=== PATIENT | male | born 1965 | race Hispanic/Latino ===

== ENCOUNTER 2018-08-24 20:08 | Inpatient (IN) | payer MEDICARE, OTHER ==
[2018-08-24 20:15] VITALS: O2SAT 97
--- NOTE | 2018-08-24 21:51 | ED PDOC ---
Arrival/HPI - General Chief Complaint: Medical Clearance Time Seen by Provider: 08/24/18 20:12 Historian: Patient - History of Present Illness Narrative History of Present Illness (Text): 08/24/18 20:54 53yr male presents today as psychiatric transfer. Patient denies chest pain or shortness of breath. No abdominal pain. No nausea vomiting diarrhea constipation. Patient states he has been feeling extremely anxious lately. Patient states no matter what medications he takes it does not improve his anxiety. Past Medical History - Provider Review Nursing Documentation Reviewed: Yes - Travel History Have you recently traveled outside [place] w/in the past 3 mons?: No - Infectious Disease Hx of Infectious Diseases: None - Cardiac Hx Cardiac Disorders: No - Pulmonary Hx Respiratory Disorders: No - Neurological Hx Neurological Disorder: No - HEENT Hx HEENT Disorder: No - Renal Hx Renal Disorder: No - Endocrine/Metabolic Hx Endocrine Disorders: No - Hematological/Oncological Hx Blood Disorders: No - Integumentary Hx Dermatological Disorder: No - Musculoskeletal/Rheumatological Hx Musculoskeletal Disorders: No - Gastrointestinal Hx Gastrointestinal Disorders: No - Genitourinary/Gynecological Hx Genitourinary Disorders: No - Psychiatric Hx Psychophysiologic Disorder: Yes Hx Anxiety: Yes Hx Depression: Yes Hx Substance Use: No Other/Comment: OCD, Schizoaffective - Anesthesia Hx Anesthesia: No Family/Social History - Physician Review Nursing Documentation Reviewed: Yes Family/Social History: Unknown Family HX Smoking Status: Heavy Smoker > 10 Cigarettes Daily Hx Alcohol Use: Yes Hx Substance Use: No Allergies/Home Meds Allergies/Adverse Reactions: Allergies No Known Allergies Allergy (Verified 08/24/18 20:17) Home Medications: Home Meds Medication Instructions Recorded Confirmed Doxepin [Sinequan] 75 mg PO BID 08/24/18 08/24/18 Mv-Mn/FA/Coq10/Lycopene/Lutein 1 tab PO DAILY 08/24/18 08/24/18 [Theragran-M Premier 50+ Caplet] carBAMazepine [Tegretol] 200 mg PO DAILY 08/24/18 08/24/18 clonazePAM [Klonopin] 1 mg PO BID 08/24/18 08/24/18 Review of Systems - Review of Systems Constitutional: absent: Fatigue, Fevers Respiratory: absent: SOB, Cough Cardiovascular: absent: Chest Pain, Palpitations Gastrointestinal: absent: Abdominal Pain, Nausea, Vomiting Musculoskeletal: absent: Arthralgias Skin: absent: Pruritis Neurological: absent: Headache, Dizziness Psychiatric: Anxiety. absent: Suicidal Ideation Physical Exam Vital Signs Reviewed: Yes Vital Signs Temp Pulse Resp BP Pulse Ox 08/24/18 20:09 98.1 F 63 17 141/99 H 97 Temperature: Afebrile Blood Pressure: Hypertensive Pulse: Regular Respiratory Rate: Normal Appearance: Positive for: Well-Appearing, Non-Toxic, Comfortable Pain Distress: None Mental Status: Positive for: Alert and Oriented X 3 - Systems Exam Head: Present: Atraumatic Mouth: Present: Moist Mucous Membranes Respiratory/Chest: Present: Clear to Auscultation Cardiovascular: Present: Regular Rate and Rhythm Abdomen: No: Tenderness, Rebound, Guarding Upper Extremity: Present: Normal ROM Lower Extremity: Present: Normal ROM Neurological: Present: GCS=15, Speech Normal Skin: Present: Warm Psychiatric: Present: Alert, Oriented x 3, Anxious Medical Decision Making ED Course and Treatment: 08/24/18 21:56 Patient presents as psych transfer from [facility] All labs and imaging and EKG reviewed Patient was medically cleared for psychiatric admission Impression: Anxiety Admit to the psychiatric floor Disposition/Present on Arrival - Present on Arrival Any Indicators Present on Arrival: No History of DVT/PE: No History of Uncontrolled Diabetes: No Urinary Catheter: No History of Decub. Ulcer: No History Surgical Site Infection Following: None - Disposition Have Diagnosis and Disposition been Completed?: Yes Diagnosis: Anxiety Disposition: HOSPITALIZED Disposition Time: 21:30 Patient Plan: Discharge Condition: GOOD
[2018-08-24] MEDS ORDERED: Magnesium Hydroxide Susp 30 ml UD PO PRN (22:01)
[2018-08-24] MEDS: Alum-Mag Hydrox-Simethicone Susp (30 mL) PO PRN (23:55)
--- NOTE | 2018-08-25 01:37 | PCM.BM ---
<Araceli Redmananuel O - Last Filed: 08/25/18 03:06> Treatment Plan Problems - Problems identified on initial assessmt Hopelessness Date Initiated: 08/24/18 Time Initiated: 22:45 Assessment reference: NA Status: Active Priority: 2 Substance abuse\ Date Initiated: 08/24/18 Time Initiated: 23:00 Assessment reference: NA Status: Active Priority: 4 Anxiety Date Initiated: 08/24/18 Time Initiated: 21:50 Assessment reference: NA Status: Active Priority: 1 Altered health maintenance Date Initiated: 08/24/18 Time Initiated: 22:50 Assessment reference: NA Status: Active Priority: 3 Treatment assets and liabiliti Patient Assests: cooperative, ADL independent, physically healthy Patient Liabilities: poor support system, relationship conflicts, substance abuse - Milieu Protocol Maintain good personal hygiene: daily Encourage regular showers, daily Remind patient to perform daily oral care, daily Assist patient to perform ADL's Conduct patient checks and document Observation sheet: Q15 minutes Maintain personal safety: daily Educate patient to report safety concerns to staff, daily Monitor environment for contraband/sharps Medication safety: Monitor for expected outcome, potential side effects: daily, Assess barriers to learning: daily, Assess readiness for medication education: daily Family Contact Family involvement: Family/SO is involved Family contact: Family has been contacted by patient, Telephone contact initiated by staff - Goals for Treatment Patient goals for treatment: to get my anxiety under control Discharge/Continuing Care - Education Needs Education Needs: Patient Medication, Patient Coping Skills, Patient Community resources - Discharge Discharge Criteria: Tolerates medication w/o severe side effects <Sol Caballero - Last Filed: 08/25/18 11:33> Treatment Plan Problems - Problems identified on initial assessmt Hopelessness Date Initiated: 08/24/18 Time Initiated: 22:45 Assessment reference: NA Status: Active Priority: 2 Substance abuse\ Date Initiated: 08/24/18 Time Initiated: 23:00 Assessment reference: NA Status: Active Priority: 4 Anxiety Date Initiated: 08/24/18 Time Initiated: 21:50 Assessment reference: NA Status: Active Priority: 1 Altered health maintenance Date Initiated: 08/24/18 Time Initiated: 22:50 Assessment reference: NA Status: Active Priority: 3 Ineffective coping Date Initiated: 08/24/18 Time Initiated: 21:50 Assessment reference: NA Status: Active Priority: 1 Social isolation Date Initiated: 08/24/18 Time Initiated: 22:50 Assessment reference: NA Status: Active Priority: 3 <YrismingolouisgloriaMadelyn A - Last Filed: 08/25/18 17:32> - Diagnosis (1) Schizoaffective disorder Status: Acute Interventions: 08/25/18 17:32 Psychoeducation/psychotherapy Psychopharmacology/adjustment of medications as needed/ monitoring possible side effects Evaluate pt on daily basis Compliance with medications and follow up appointments Long acting medication if pt is noncompliant with pill form Suicide and homicide risk assessment and prevention, coping strategies, safety plan Relapse prevention Reduction of symptoms Improve functional status Possible assertive community treatment Cognitive behavioral therapy Family involvement Possible social skill training as outpatient (2) Alcohol use disorder Status: Acute Interventions: 08/25/18 17:32 Monitoring withdrawal symptoms Medical detoxification Pharmacotherapy for alcohol/benzos/opioid dependence Maintaining sobriety Relapse prevention Possible rehabilitation Motivational interviewing 12-step programs: AA meetings (3) OCD (obsessive compulsive disorder) Status: Acute Interventions: 08/25/18 17:33 Psychoeducation Psychopharmacology/adjustment of medications as needed/ monitoring possible side effects Evaluate pt on daily basis Compliance with medications and follow up appointments Suicide and homicide risk assessment and prevention, coping strategies, safety plan Relapse prevention Reduction of symptoms Improve functional status Family involvement CBT, SSRI, exposure response prevention as outpatient Supportive therapy <Danielle Velazquez - Last Filed: 08/27/18 12:35> Family Contact Family involvement: Family/SO is involved Family contact: Patient agrees to contact Family contact name: Li Hewitt(mother) Family contacted how many times per week?: 2
[2018-08-25 08:16] LABS: GLUCOSE,FASTING 87 mg/dL (65-110); HDL CHOLESTEROL 63 mg/dL (29-60)
[2018-08-25 08:26] LABS: LDL CHOLESTEROL 123 mg/dL (0-129)
[2018-08-25] MEDS: Multivitamin Therapeutic Tab PO SCH (09:59)
--- NOTE | 2018-08-25 17:32 | PCM.PSYCH ---
Initial Psychiatric Evaluation - Initial Psychiatric Evaluation Type of Admission: Voluntary Legal Status: Capacity Chief Complaint (in patient's own words): "I have OCD, depression, I came to the hospital for medications adjustment." Patient drinks 2-3 beers every day UDS was positive for benzodiazepines 08/22/18 AST 42 ALT 32 Chest x-ray 08/22/18 Impression: There is no evidence of acute cardiac or pulmonary disease EKG 08/22/2018 NSR, normal EKG Collaterals from patient's primary psychiatrist was obtained at the emergency room 08/22/2018 Patient's brother from alcohol-related illnesses, patient's mother was very upset because of the fact that patient was drinking beer, patient was secretive and not sharing he will be evicted from boarding home, most likely patient was mixed using/abusing benzodiazepines, drinking alcohol. Private psychiatrist Dr. Reno Murphy [phone], as per chart patient is not welcome back to the boarding home. Past psychiatric history: Patient has multiple admissions into the psychiatric inpatient unit, most recent was in [facility] May 2018, inpatient voluntary, [facility] "years ago", [facility] "few times", voluntary admission. Patient was diagnosed with schizoaffective disorder, bipolar type, alcohol use disorder, severe. Family history of bipolar disorder, patient's brother last year from alcohol complication. Patient sister suffer from bipolar disorder, history of major depressive disorder in the family. Patient's Reaction to Hospitalization: Patient was admitted for evaluation of depression and anxiety History of Present Illness and Precipitating Events: Patient is 63 years old male with a self reported history of "OCD", depression anxiety, patient has multiple psychiatric admissions in the past, patient was transferred from [facility] for evaluation of "OCD and shakiness, I wanted medications to be reviewed", symptoms were getting worse for the past two months, transfer was uneventful. Patient was seen at the treatment team meeting, Patient presented to be disheveled, fair ADLs, long and uncombed hair, intermittent eye contact, flat affect, patient presented to be disengaged, withdrawn. Patient reported that his main reason for admission was "shakiness and anxiety, moreover I wanted my medication to be adjusted", patient presented to be poor and unreliable historian. as per Medical record from [facility]: Patient presented into the emergency room for evaluation of anxiety as a child, patient reported that he was feeling worse for the past few months. His primary psychiatrist prescribed medication but patient was noncompliant with them. Patient presented with symptoms of palpitation and mild/intermittent shortness of breath. Patient reported difficulty to fall asleep and to stay asleep, patient denied any suicidal or homicidal ideations, no psychotic symptoms identified. Patient reported that he was drinking 2-3 beers every day. pt reported he was dx with OCD and bipolar disorder. Patient denies history of suicidal attempts. as per Report from [facility]: UDS was positive for benzodiazepines 08/22/18 AST 42 ALT 32 Chest x-ray 08/22/18 Impression: There is no evidence of acute cardiac or pulmonary disease EKG 08/22/2018 NSR, normal EKG Collaterals from patient's primary psychiatrist was obtained at the emergency room 08/22/2018 Patient's brother from alcohol-related illnesses, patient's mother was very upset because of the fact that patient was drinking beer, patient was secretive and not sharing he will be evicted from boarding home, most likely patient was mixed using/abusing benzodiazepines, drinking alcohol. Private psychiatrist Dr. Reno Murphy [phone], as per chart patient is not welcome back to the board ing home. Past psychiatric history: Patient has multiple admissions into the psychiatric inpatient unit, most recent was in [facility] June/ May 2018, inpatient voluntary, [facility] "years ago", [facility] "few times", voluntary admission. Patient was diagnosed with schizoaffective disorder, bipolar type, alcohol use disorder, severe. Past diagnosis: Depression Obsessive-compulsive disorder Schizoaffective disorder Family history of bipolar disorder, patient's brother last year from alcohol complication. Patient sister suffer from bipolar disorder, history of major depressive disorder in the family. Patient's pharmacy was contacted [phone] Patient was in the following medications filled in July 30 day supply was given by Doxepin 150 mg at the bedtime Klonopin 2 mg twice a day Cymbalta 30 mg daily Prilosec 20 mg daily Patient has 3 refills left Patient reports living in a "care home" in [place], [place]. Patient reports he does not have a telehealth case manager. Patient gave consent to speak to his psychiatrist in [place], [place] and his mother, Li ([phone]). Patient reports drinking 2-3 beers nightly. Patient denies having a problem with alcohol use. Patient reports self medicating with alcohol to help with his nervousness. Patient reports smoking 1/2 pk of cigarettes. Patient refused Nicotine patch. Patient reports his mother informed pt that he will be evicted from his boarding home. However, patient reports he was never told about being eviction personally. Lab Results 08/25/18 07:30: TSH 3rd Generation 1.94 08/25/18 07:30: Fasting Glucose 87, Triglycerides 66, Cholesterol 206 H, LDL Cholesterol Direct 123, HDL Cholesterol 63 H 08/25/18 07:30: Carbamazepine 3 L Vital Signs Temp Pulse Resp BP Pulse Ox 08/25/18 16:00 83 126/85 08/25/18 06:59 97.3 F L 116 H 20 107/73 08/25/18 02:17 18 08/24/18 20:09 98.1 F 63 17 141/99 H 97 The patient failed the outpatient lower level of care: Yes Current Medications: Active Medications Generic Name Dose Route Start Last Admin Trade Name Freq PRN Reason Stop Dose Admin Al Hydrox/Mg Hydrox/Simethicone 30 ml 08/24/18 22:01 08/24/18 23:55 Maalox Plus 30 Ml PO 30 ml DAILY PRN Administration Dyspepsia Lorazepam 2 mg 08/25/18 06:00 08/25/18 05:51 Ativan PO 2 mg Q6 NITIN Administration Protocol Magnesium Hydroxide 30 ml 08/24/18 22:01 Milk Of Magnesia PO DAILY PRN Constipation Multivitamins 1 tab 08/25/18 08:00 Thera Tab PO 0800 NITIN Zaleplon 5 mg 08/24/18 22:05 08/24/18 22:34 Sonata PO 5 mg HS PRN Administration Insomnia Present on Admission - Present on Admission Any Indicators Present on Admission: No History of DVT/PE: No History of Uncontrolled Diabetes: No Urinary Catheter: No Decubitus Ulcer Present: No Review of Systems - Review of Systems Systems not reviewed;Unavailable: Acuity of Condition - Constitutional Constitutional: As Per HPI - EENT Eyes: As Per HPI Ears: As Per HPI Nose/Mouth/Throat: As Per HPI - Cardiovascular Cardiovascular: As Per HPI - Respiratory Respiratory: As Per HPI - Gastrointestinal Gastrointestinal: As Per HPI - Genitourinary Genitourinary: As Per HPI - Reproductive: Male Reproductive:Male: As Per HPI - Musculoskeletal Musculoskeletal: As Per HPI - Integumentary Integumentary: As Per HPI - Neurological Neurological: As Per HPI - Psychiatric Psychiatric: As Per HPI - Endocrine Endocrine: As Per HPI - Hematologic/Lymphatic Hematologic: As Per HPI Past Patient History - Past Psychiatric History Previous Treatment History: Inpatient Prior Professional Help: as per HPI Prior Psychiatric Treatment: as per HPI At [facility]: as per HPI Duration: as per HPI Nature of Treatment: as per HPI Explanation of prior treatment: as per HPI - PSYCHIATRIC Hx Anxiety: Yes Hx Bipolar Disorder: Yes Hx Substance Use: Yes - Infectious Disease Hx of Infectious Diseases: None - CARDIAC Hx Cardiac Disorders: No - PULMONARY Hx Respiratory Disorders: No - NEUROLOGICAL Hx Neurological Disorder: No - HEENT Hx HEENT Problems: No - RENAL Hx Chronic Kidney Disease: No - ENDOCRINE/METABOLIC Hx Endocrine Disorders: No - HEMATOLOGICAL/ONCOLOGICAL Hx Blood Disorders: No - INTEGUMENTARY Hx Dermatological Problems: No - MUSCULOSKELETAL/RHEUMATOLOGICAL Hx Musculoskeletal Disorders: No - GASTROINTESTINAL Hx Gastrointestinal Disorders: No - GENITOURINARY/GYNECOLOGICAL Hx Genitourinary Disorders: No - SURGICAL HISTORY Hx Surgeries: No - ANESTHESIA Hx Anesthesia: No - Medical/Surgical History Reviewed & confirmed: by [place] Meds Allergies/Adverse Reactions: Allergies Allergy/AdvReac Type Severity Reaction Status Date / Time No Known Allergies Allergy Verified 08/24/18 20:17 Mental Status Examination - Personal Presentation Personal Presentation: Looks stated age - Affect Affect: Constricted, Flat - Motor Activity Motor Activity: Calm, Psychomotor Retardation - Reliability in Providing Information Reliability in Providing Information: Poor, due to alteration in thoughts, Poor, due to altered mood, Poor, due to cognitve impairment - Mood Mood: Depressed, Anxious - Formal Thought Process Formal Thought Process: Other (Circumstantial thought process) - Obsessions/Compulsions Obsessions: Yes Compulsions: Yes - Cognitive Functions Orientation: Person, Place Sensorium: Drowsy Attention/Concentration: Easily distracted Abstract Thinking: Maribel Estimate of Intelligence: Below average Judgement: Intact, as evidence by: Insight regarding need for hospitalization - Risk Risk: Diminished functioning - Strength & Assets Inventory Strength & Assets Inventory: Cooperative, Other (Support from family) - Limitations Limitations: Other (Alcohol abuse/dependence) Psychiatric Physical Exam - Physical Exam Reviewed and confirmed: Emergency Department Physical Exam Results - Vital Signs Recent Vital Signs: Last Vital Signs Temp 97.3 F L 08/25/18 06:59 Pulse 116 H 08/25/18 06:59 Resp 20 08/25/18 06:59 BP 107/73 08/25/18 06:59 Pulse Ox 97 08/24/18 20:09 - Labs Labs: Laboratory Results - last 24 hr 08/25/18 08/25/18 07:30 07:30 Fasting Glucose 87 Triglycerides 66 Cholesterol 206 H HDL Cholesterol 63 H Carbamazepine 3 L - EKG Data EKG Interpreted by: ER Physician DSM Plan - DSM 5 DSM 5 Diagnosis: As per history schizoaffected disorder Alcohol use disorder Rule out alcohol/benzodiazepines withdrawals - Recommended/Plan of Treatment Treatment Recommendations and Plan of Treatment: Milieu/structure/supportive therapy SW consultation for discharge plan and social issues Med management Vitamins/thiamine/folic acid Neurontin 300 mg for mood stabilization/anxiety meds confirmed and resumed will monitor possible alcohol/benzodiazepines withdrawals Klonopin 2 mg stat given ativan prn for alcohol withdrawals We will monitor vital signs Family involvement Follow up on labs Will monitor closely Pt was educated about risk/benefits and alternatives of medications, coping strategies (safety plan, suicide prevention), relapse prevention, importance of follow up with psychiatrist and therapist, stay away from drugs/alcohol/smoking Projected ELOS: 7 days Prognosis: Guarded Discharge Plan and Discharge Criteria: Patient will pose no imminent danger to self or others - Tobacco Cessation Tobacco Use Status for the last 30 days: Heavy User(>=5 cigs &/or cigars/pipes daily) Tobacco Use Treatment Practical Counseling Provided: Yes Tobacco Use Treatment FDA-Approved Cessation Medication Provided: No Reason for not providing: Patient refused tobacco cessation medication - Alcohol or Substance Abuse Does the patient have an Alcohol or Substance Abuse Disorder: Yes Initial Psych Certification - Initial Certification I certify that the inpatient psychiatric facility admission was medically necessary for either: Treatment which could reasonbly be expected to improve pt's condition I estimate of hospitalization is necessary for proper treatment of the patient: 7 Unit of Time: Days My plans for post-hospital care for this patient are: Possible inpatient rehab
--- NOTE | 2018-08-25 19:59 | CON ---
DATE: 08/25/2018 HISTORY OF PRESENT ILLNESS: He is in the psychiatric floor. I was called to be the medical doctor for him. He is a 53-year-old white man who presents extremely anxious, want to change medications, all other medicines are not helping him. He is very upset about this. He is also concerned about his liver and his kidneys. He would not explain why. PAST MEDICAL HISTORY: He has anxiety, depression, schizoaffective disorder, OCD. FAMILY HISTORY: Unknown family history. SOCIAL HISTORY: He still smoking cigarettes, still drinking alcohol. ALLERGIES: NO KNOWN DRUG ALLERGIES. MEDICATIONS: He is on Sinequan, Thera-Tabs, Tegretol, and Klonopin. REVIEW OF SYSTEMS: No fevers. No fatigue. No shortness of breath. No cough. No chest pain or palpitation. No acute vision or hearing changes that he knows of. No neck pain. No sore throat. No abdominal pain. No nausea, vomiting, constipation, or diarrhea. No rashes or itching. No headache or dizziness. He is quite anxious, just worried, concerned about his liver and kidneys but not sure why, but no suicidal thoughts. PHYSICAL EXAMINATION VITAL SIGNS: 98.1 temperature, 63 pulse, 17 respiratory rate, his blood pressure is 141/99 which is extremity high, I will exam his blood pressure to see if we could that down. He might need blood pressure medications. He is quite hypertensive. He is well appearing, nontoxic, comfortable, walking on the uribe to his rooms, alert and oriented x3. HEENT: Head is atraumatic and normocephalic. Throat is moist. NECK: Supple. HEART: Regular rate. Normal S1 and S2. LUNGS: Decreased breath sounds. Clear to auscultation. No wheezes. No rhonchi or rales. ABDOMEN: Soft and nontender. Positive bowel sounds. No guarding. No rebound. No CVA tenderness. EXTREMITIES: No edema. He can move all four extremities well. NEUROLOGIC: GCS is 15. Cranial nerves II through XII grossly intact. Speech is normal. He could close his eyes tight. He can put his arms over his head. He could stick out her tongue midline. He can crunch his teeth. Skin is warm and dry. No apparent ulcers or rashes appreciative. Alert and oriented x3, little anxious, preoccupied with his liver and kidneys. LABORATORY DATA: They told him I will do blood test. He had blood test. He had blood test done already. Sugar is 87, triglycerides 56, cholesterol is 206, LDL is 123, HDL 63, TSH is 1.94 and his carbamazepine is 3. PLAN: Last blood pressure was 107/73. He was just given antianxiety medications. Now I will put him on blood pressure pill at this time. We will watch his blood pressure with antianxiety medications. Also check his lab test and hope he going to do well. He has multiple issues. He has anxiety, depression, schizoaffective disorder, OCD, and he did have hypertension when he came in, we will watch that. He is also a smoker and a drinker, I told him he has to quit. Piyush Mcmahan DO MTDD
[2018-08-25] MEDS: Doxepin HCL 10 mg/mL ORAL SOLUTION PO SCH (21:32)
[2018-08-26 07:52] LABS: HEMOGLOBIN 15.2 g/dL (14.0-18.0); MEAN CELL VOLUME 103.8 fl (80.0-105.0); MEAN CORPUSCULAR HEMOGLOBIN 35.8 pg (25.0-35.0); MEAN CORPUSCULAR HGB CONC 34.5 g/dl (31.0-37.0); MEAN PLATELET VOLUME 10.7 fl (7.0-11.0); RBC 4.25 10^6/uL (3.5-6.1); RED CELL DISTRIBUTION WIDTH 13.3 % (11.5-14.5); WHITE BLOOD COUNT 6.2 10^3/uL (4.5-11.0)
[2018-08-26 08:03] LABS: ALB/GLOB RATIO 0.9 (1.1-1.8); ALBUMIN 3.3 g/dL (3.0-4.8); ALT/SGPT 25 U/L (7-56); AST/SGOT 43 U/L (17-59); BLOOD UREA NITROGEN 9 mg/dL (7-21); CALCIUM 8.6 mg/dL (8.4-10.5); GFR NON-AFRICAN AMERICAN > 60
[2018-08-26] MEDS: Multivitamin Therapeutic Tab PO SCH (09:14)
--- NOTE | 2018-08-26 13:03 | PN ---
DATE: 08/26/2018 SUBJECTIVE: I saw him in the psychiatric floor. We took a walk to his room. He slept okay, he has eaten alright, not much better yet, on his anxiety and his depression. He is on Ativan, Cymbalta, folic acid, Geodon, Klonopin, Maalox, milk of magnesia, Neurontin, Sonata, Thera-Tabs, vitamin B1. PHYSICAL EXAMINATION: VITAL SIGNS: He has a 97.5 temperature, 80 pulse, 119/79 blood pressure, 16 respiratory rate, 97% O2 sat on room air. HEENT: Head is atraumatic, normocephalic. HEART: Regular rate. LUNGS: Decreased breath sounds. ABDOMEN: Soft, obese. EXTREMITIES: No edema. SKIN: Quite dry. LABORATORY DATA: He has a 6.2 white count,15.2 hemoglobin, 44.1 hematocrit with 121 platelets. 139 sodium, potassium 3.6, BUN 9, creatinine 0.6, GFR is greater than 60, sugar is 89, calcium is 8.6, total bili is 0.8. AST is 43, ALT is 25, alk phos 91. Total protein 6.8, albumin is 3.3, cholesterol is 206, triglycerides 66. TSH is 1.94. ASSESSMENT AND PLAN: I encouraged him to participate in groups, take the medication, I think he is going to improve and hopefully will do quite well. His blood tests were very good. We will follow. Piyush Mcmahan DO
--- NOTE | 2018-08-26 16:33 | PCM.PYCHPN ---
Psychiatric Progress Note - Psychiatric Progress Note Patient seen today, length of contact: 30 minutes Patient Chief Complaint: "I have OCD, any suggestion to my medications?" Problems Identified/Issues Discussed: Medications, risk/benefits/alternatives, of meds, discharge plan, safety plan. Medical Problems: See HPI Diagnostic Results: 08/26/18 07:40 08/26/18 07:40 Lab Results 08/26/18 07:40: Sodium 139, Potassium 3.6, Chloride 109 H, Carbon Dioxide 25, Anion Gap 9 L, BUN 9, Creatinine 0.6 L, Est GFR ( Amer) > 60, Est GFR (Non-Af Amer) > 60, Random Glucose 89, Calcium 8.6, Total Bilirubin 0.8, AST 43, ALT 25, Alkaline Phosphatase 91, Total Protein 6.8, Albumin 3.3, Globulin 3.6, Albumin/Globulin Ratio 0.9 L 08/26/18 07:40: WBC 6.2, RBC 4.25, Hgb 15.2, Hct 44.1, MCV 103.8, MCH 35.8 H, MCHC 34.5, RDW 13.3, Plt Count 121, MPV 10.7 08/25/18 07:30: TSH 3rd Generation 1.94 08/25/18 07:30: Fasting Glucose 87, Triglycerides 66, Cholesterol 206 H, LDL Cholesterol Direct 123, HDL Cholesterol 63 H 08/25/18 07:30: Carbamazepine 3 L Vital Signs Temp Pulse Resp BP Pulse Ox 08/26/18 16:00 84 103/58 L 08/26/18 06:36 97.5 F L 80 16 119/79 08/25/18 16:00 83 126/85 08/25/18 06:59 97.3 F L 116 H 20 107/73 08/25/18 02:17 18 08/24/18 20:09 98.1 F 63 17 141/99 H 97 DSM 5 Symptoms Update: Patient is 63 years old male with a self reported history of "OCD", depression anxiety, patient has multiple psychiatric admissions in the past, patient was transferred from [facility] for evaluation of "OCD and shakiness, I wanted medications to be reviewed", symptoms were getting worse for the past two months, transfer was uneventful. Patient was seen next to the nursing station, patient still wears down from other hospital, seems did not take any shower, personal hygiene is far from being ideal. Patient reported OCD symptoms saying that he has obsessions with symmetry, about low-dose, patient reported that "my socks needs to be at the same exact way", patient reported that he was feeling not well, was depressed, at present time "I feel the same, depressed, as usual...", pt reported being on multiple psychotropic medications including Prozac, Paxil, Zoloft, Luvox, patient reported that OCD symptoms were not improving. Patient also reported that Prozac was the first medication which was started, patient reported never being on maximum dose for more than couple of weeks, patient is willing to be reintroduced to Prozac. As per staff, patient is oddly related, spacing out, disengaged, at the same time no agitation no aggression. Patient tolerates medications well, no side effects observed or reported, aims 0, no EPS. DSM 5 Diagnosis: As per history schizoaffected disorder Alcohol use disorder Rule out alcohol/benzodiazepines withdrawals Medication Change: Yes (Cymbalta discontinued, started) Medical Record Reviewed: Yes Consults ordered or reviewed: Patient was seen by Dr. Mcmahan, consult appreciated, please see notes for more detailed information Mental Status Examination - Cognitive Function Orientation: Person, Place Memory: Impaired Attention: Poor Concentration: Poor Association: Loose Fund of Knowledge: Poor - Mood Mood: Depressed, Anxious - Affect Affect: Constricted, Flat - Formal Thought Process Formal Thought Process: Other (Circumstantial thought process) - Suicidal Ideation Suicidal Ideation: No - Homicidal Ideation Homicidal Ideation: No Goal/Treatment Plan - Goal/Treatment Plan Need for Continued Stay: Remain at risks for inpatient hospitalization, Severe depression anxiety, Discharge may exacerbated symptoms, Severe functional impairment Progress Toward Problem(s) and Goals/Treatment Plan: Milieu/structure/supportive therapy SW consultation for discharge plan and social issues Med management Vitamins/thiamine/folic acid Neurontin 300 mg for mood stabilization/anxiety meds confirmed and resumed will monitor possible alcohol/benzodiazepines withdrawals Klonopin 2 mg stat given ativan prn for alcohol withdrawals Doxepin will be continued at 150 mg at the nighttime Cymbalta was discontinued Prozac 20 mg daily for depression/anxiety/OCD We will monitor vital signs Family involvement Follow up on labs Will monitor closely Pt was educated about risk/benefits and alternatives of medications, coping strategies (safety plan, suicide prevention), relapse prevention, importance of follow up with psychiatrist and therapist, stay away from drugs/alcohol/smoking Estimated Date of D/C: 09/01/18
[2018-08-26] MEDS: Doxepin HCL 10 mg/mL ORAL SOLUTION PO SCH (21:18)
[2018-08-27] MEDS: Multivitamin Therapeutic Tab PO SCH (08:06)
--- NOTE | 2018-08-27 11:17 | PN ---
DATE: 08/27/2018 SUBJECTIVE: I saw him in the psychiatric floor. He tells me he is starting to feel a little bit better mentally. He is comfortable. He wants to know all about his blood tests, I went over that with him. He is over 50, so I can order a PSA and we discussed colonoscopy in the outpatient. He is on Ativan, doxepin, folic acid, Geodon, Klonopin, Maalox, milk of magnesia, Neurontin, Prozac, Sonata, vitamins. He is eating well, walking well. PHYSICAL EXAMINATION: VITAL SIGNS: Temp 97.5, 80 pulse, 119/79 blood pressure, 16 respiratory rate. HEENT: Head is atraumatic, normocephalic. Throat is moist. NECK: Supple. HEART: Regular rate. LUNGS: Decreased breath sounds, but clear. ABDOMEN: Soft, obese. EXTREMITIES: No edema. He actually does seem a little bit better. He is improving a little bit. He was concerned about his kidney functions and they are good and his liver and they are good enzymes at least. LABORATORY DATA: White count is good, hemoglobin is good, platelets are good. We are ordering a PSA. ASSESSMENT AND PLAN: I encouraged him to take the medications, participate in groups. I think he will continue to improve psychologically. He has got anxiety, schizoaffective disorder, obsessive-compulsive disorder, smoker, drinker, hypertension, which is now 103/58, on no blood pressure meds. Piyush Mcmahan DO MTDD
[2018-08-27] MEDS ORDERED: Doxepin HCL 10 mg/mL ORAL SOLUTION PO SCH (14:13)
--- NOTE | 2018-08-27 14:19 | PCM.PYCHPN ---
Psychiatric Progress Note - Psychiatric Progress Note Patient seen today, length of contact: 30 minutes Patient Chief Complaint: "do you think we need to discontinue neurontin? it does not do anything, you mentioned something about Doxepine..." Problems Identified/Issues Discussed: Medications, risk/benefits/alternatives, of meds, discharge plan, safety plan. Medical Problems: See HPI Diagnostic Results: 08/26/18 07:40 08/26/18 07:40 Lab Results 08/26/18 07:40: Sodium 139, Potassium 3.6, Chloride 109 H, Carbon Dioxide 25, Anion Gap 9 L, BUN 9, Creatinine 0.6 L, Est GFR ( Amer) > 60, Est GFR (Non-Af Amer) > 60, Random Glucose 89, Calcium 8.6, Total Bilirubin 0.8, AST 43, ALT 25, Alkaline Phosphatase 91, Total Protein 6.8, Albumin 3.3, Globulin 3.6, Albumin/Globulin Ratio 0.9 L 08/26/18 07:40: WBC 6.2, RBC 4.25, Hgb 15.2, Hct 44.1, MCV 103.8, MCH 35.8 H, MCHC 34.5, RDW 13.3, Plt Count 121, MPV 10.7 08/25/18 07:30: TSH 3rd Generation 1.94 08/25/18 07:30: Fasting Glucose 87, Triglycerides 66, Cholesterol 206 H, LDL Cholesterol Direct 123, HDL Cholesterol 63 H 08/25/18 07:30: Carbamazepine 3 L Vital Signs Temp Pulse Resp BP Pulse Ox 08/26/18 16:00 84 103/58 L 08/26/18 06:36 97.5 F L 80 16 119/79 08/25/18 16:00 83 126/85 08/25/18 06:59 97.3 F L 116 H 20 107/73 08/25/18 02:17 18 08/24/18 20:09 98.1 F 63 17 141/99 H 97 DSM 5 Symptoms Update: Patient is 63 years old male with a self reported history of "OCD", depression anxiety, patient has multiple psychiatric admissions in the past, patient was transferred from [facility] for evaluation of "OCD and shakiness, I wanted medications to be reviewed", symptoms were getting worse for the past two months, transfer was uneventful. Patient was seen next to the nursing station, hygiene seems to be improving, pt took a shower, pt is more alert, pleasant. pt was able to participate in meaningful discussion about his meds. pt agreed to d/c neurontin, increase prozac and start weaning off doxepine. pt presented to be depressed/flat affect/oddly related, but not acutely psychotic. As per staff, pt is spacing out, disengaged, at the same time no agitation no aggression. Patient tolerates medications well, no side effects observed or reported, aims 0, no EPS. DSM 5 Diagnosis: As per history schizoaffected disorder Alcohol use disorder Rule out alcohol/benzodiazepines withdrawals Medication Change: Yes (Decreased, Neurontin continued, Prozac increased) Medical Record Reviewed: Yes Consults ordered or reviewed: Patient was seen by Dr. Mcmahan, consult appreciated, please see notes for more detailed information Mental Status Examination - Cognitive Function Orientation: Person, Place Memory: Impaired Attention: Poor Concentration: Poor Association: Loose Fund of Knowledge: Poor - Mood Mood: Depressed, Anxious - Affect Affect: Constricted, Flat - Formal Thought Process Formal Thought Process: Other (Circumstantial thought process) - Suicidal Ideation Suicidal Ideation: No - Homicidal Ideation Homicidal Ideation: No Goal/Treatment Plan - Goal/Treatment Plan Need for Continued Stay: Remain at risks for inpatient hospitalization, Severe depression anxiety, Discharge may exacerbated symptoms, Severe functional impairment Progress Toward Problem(s) and Goals/Treatment Plan: Milieu/structure/supportive therapy SW consultation for discharge plan and social issues Med management Vitamins/thiamine/folic acid meds confirmed and resumed will monitor possible alcohol/benzodiazepines withdrawals Klonopin 2 mg stat given ativan prn for alcohol withdrawals Doxepin will be decreased to 100 mg at the nighttime, with a plan to wean as well Cymbalta was discontinued Prozac 30 mg daily for depression/anxiety/OCD Neurontin discontinued Sonata will We will monitor vital signs Family involvement Follow up on labs Will monitor closely Pt was educated about risk/benefits and alternatives of medications, coping strategies (safety plan, suicide prevention), relapse prevention, importance of follow up with psychiatrist and therapist, stay away from drugs/alcohol/smoking Estimated Date of D/C: 09/01/18
[2018-08-28] MEDS: Multivitamin Therapeutic Tab PO SCH (09:46)
[2018-08-28] MEDS ORDERED: Doxepin HCL 10 mg/mL ORAL SOLUTION PO SCH (10:29)
--- NOTE | 2018-08-28 11:42 | PCM.PYCHPN ---
Psychiatric Progress Note - Psychiatric Progress Note Patient seen today, length of contact: 30 minutes Patient Chief Complaint: "I think I am all right" Problems Identified/Issues Discussed: Medications, risk/benefits/alternatives, of meds, discharge plan, safety plan. Medical Problems: See HPI Diagnostic Results: 08/26/18 07:40 08/26/18 07:40 Lab Results 08/26/18 07:40: Sodium 139, Potassium 3.6, Chloride 109 H, Carbon Dioxide 25, Anion Gap 9 L, BUN 9, Creatinine 0.6 L, Est GFR ( Amer) > 60, Est GFR (Non-Af Amer) > 60, Random Glucose 89, Calcium 8.6, Total Bilirubin 0.8, AST 43, ALT 25, Alkaline Phosphatase 91, Total Protein 6.8, Albumin 3.3, Globulin 3.6, Albumin/Globulin Ratio 0.9 L 08/26/18 07:40: WBC 6.2, RBC 4.25, Hgb 15.2, Hct 44.1, MCV 103.8, MCH 35.8 H, MCHC 34.5, RDW 13.3, Plt Count 121, MPV 10.7 08/25/18 07:30: TSH 3rd Generation 1.94 08/25/18 07:30: Fasting Glucose 87, Triglycerides 66, Cholesterol 206 H, LDL Cholesterol Direct 123, HDL Cholesterol 63 H 08/25/18 07:30: Carbamazepine 3 L Vital Signs Temp Pulse Resp BP Pulse Ox 08/26/18 16:00 84 103/58 L 08/26/18 06:36 97.5 F L 80 16 119/79 08/25/18 16:00 83 126/85 08/25/18 06:59 97.3 F L 116 H 20 107/73 08/25/18 02:17 18 08/24/18 20:09 98.1 F 63 17 141/99 H 97 DSM 5 Symptoms Update: Patient is 63 years old male with a self reported history of "OCD", depression anxiety, patient has multiple psychiatric admissions in the past, patient was transferred from [facility] for evaluation of "OCD and shakiness, I wanted medications to be reviewed", symptoms were getting worse for the past two months, transfer was uneventful. Patient was seen in his room, patient presented to be sleepy, oddly related, collateral information was obtained from patient mother by social work lecturer, please see notes for more detailed information. Patient has history of schizoaffective disorder, psychosis. This fiction and nonfiction prose writer educated patient about treatment plan, patient is in the process of being weaned off from doxepin, Seroquel was started 50 mg at the nighttime, Neurontin discontinued, Prozac will be increased. pt was able to participate in meaningful discussion about his meds. pt presented to be depressed/flat affect/oddly related, but not acutely psychotic. As per staff, pt is spacing out, disengaged, at the same time no agitation no aggression. Patient tolerates medications well, no side effects observed or reported, aims 0, no EPS. DSM 5 Diagnosis: As per history schizoaffected disorder Alcohol use disorder Rule out alcohol/benzodiazepines withdrawals Medication Change: Yes (Seroquel started) Medical Record Reviewed: Yes Consults ordered or reviewed: Patient was seen by Dr. Mcmahan, consult appreciated, please see notes for more detailed information Mental Status Examination - Cognitive Function Orientation: Person, Place Memory: Impaired Attention: Poor Concentration: Poor Association: Loose Fund of Knowledge: Poor - Mood Mood: Depressed, Anxious - Affect Affect: Constricted, Flat - Formal Thought Process Formal Thought Process: Other (Circumstantial thought process) - Suicidal Ideation Suicidal Ideation: No - Homicidal Ideation Homicidal Ideation: No Goal/Treatment Plan - Goal/Treatment Plan Need for Continued Stay: Remain at risks for inpatient hospitalization, Severe depression anxiety, Discharge may exacerbated symptoms, Severe functional impairment Progress Toward Problem(s) and Goals/Treatment Plan: Milieu/structure/supportive therapy SW consultation for discharge plan and social issues Med management Vitamins/thiamine/folic acid meds confirmed and resumed will monitor possible alcohol/benzodiazepines withdrawals Klonopin 2 mg stat given ativan prn for alcohol withdrawals Doxepin will be decreased to 75 mg at the nighttime, with a plan to wean as well Cymbalta was discontinued Prozac 30 mg daily for depression/anxiety/OCD Neurontin discontinued Sonata will be continued seroquel 50mg po hs for Mood stabilization and possible psychosis We will monitor vital signs Family involvement Follow up on labs Will monitor closely Pt was educated about risk/benefits and alternatives of medications, coping strategies (safety plan, suicide prevention), relapse prevention, importance of follow up with psychiatrist and therapist, stay away from drugs/alcohol/smoking Estimated Date of D/C: 09/01/18
--- NOTE | 2018-08-28 12:46 | PN ---
DATE: 08/28/2018 SUBJECTIVE: I saw him in the psychiatric floor. He is resting comfortably. He is sitting in a chair. He has had no complaints. He is on Ativan, cortisol, folic acid, Geodon, Klonopin, Maalox, milk of magnesia, Prozac, Sonata, Thera-Tabs and vitamin B1. He is eating well. Going to bathroom. He is walking well. He tells me, he may be a little bit better mentally. No medical issues to me. PHYSICAL EXAMINATION: VITAL SIGNS: 97.4 temperature, 73 pulse, 115/79 blood pressure, 20 respiratory rate. HEENT: Head is atraumatic and normocephalic. HEART: Regular rate. LUNGS: Decreased breath sounds but clear. ABDOMEN: Soft. Obese and nontender. EXTREMITIES: No edema. LABORATORY DATA: On 08/26/2018, he did well. PSA was 0.5. TSH 1.94. ASSESSMENT AND PLAN: We will continue with aggressive treatment and care psychologically hopefully get him to be able to improve. We will follow medically. Piyush Mcmahan DO
[2018-08-28] MEDS: Alum-Mag Hydrox-Simethicone Susp (30 mL) PO PRN (22:58)
[2018-08-29] MEDS: Multivitamin Therapeutic Tab PO SCH (09:44)
--- NOTE | 2018-08-29 13:26 | PN ---
DATE: 08/29/2018 SUBJECTIVE: He was actually resting comfortably in his bed in the psychiatric floor. He is eating well. Feeling little bit better. MEDICATIONS: He is on Abilify, Ativan, cortisone ointment, folic acid, Geodon, Klonopin, Maalox, milk of magnesia, Prozac, Sonata, Thera-Tabs and vitamin B1. PHYSICAL EXAMINATION: VITAL SIGNS: He has 98.1 temp, 80 pulse, 95/61 blood pressure, 18 respiratory rate. HEENT: Head is atraumatic and normocephalic. HEART: Regular rate. LUNGS: Decreased breath sounds. ABDOMEN: Soft, obese. EXTREMITIES: No edema. LABORATORY DATA: He has labs that was done on 08/26/2018 which looked good. His PSA was 0.5. TSH was 1.94. ASSESSMENT AND PLAN: He is being seen by Psychiatry. Overall, I think he is starting to improve slowly. Medically, I think he is stable at this time. We will follow. I will continue aggressive treatment and care. The patient is here for anxiety, depression, schizoaffective disorder, obsessive-compulsive disorder, smoking, drinking, and hypertension. Piyush Mcmahan DO
--- NOTE | 2018-08-29 16:01 | PCM.PYCHPN ---
Psychiatric Progress Note - Psychiatric Progress Note Patient seen today, length of contact: 30 minutes Patient Chief Complaint: "I do not know, probably I have a high resistance for all medications...." Problems Identified/Issues Discussed: Medications, risk/benefits/alternatives, of meds, discharge plan, safety plan. Medical Problems: See HPI Diagnostic Results: 08/26/18 07:40 08/26/18 07:40 Lab Results 08/26/18 07:40: Sodium 139, Potassium 3.6, Chloride 109 H, Carbon Dioxide 25, Anion Gap 9 L, BUN 9, Creatinine 0.6 L, Est GFR ( Amer) > 60, Est GFR (Non-Af Amer) > 60, Random Glucose 89, Calcium 8.6, Total Bilirubin 0.8, AST 43, ALT 25, Alkaline Phosphatase 91, Total Protein 6.8, Albumin 3.3, Globulin 3.6, Albumin/Globulin Ratio 0.9 L 08/26/18 07:40: WBC 6.2, RBC 4.25, Hgb 15.2, Hct 44.1, MCV 103.8, MCH 35.8 H, MCHC 34.5, RDW 13.3, Plt Count 121, MPV 10.7 08/25/18 07:30: TSH 3rd Generation 1.94 08/25/18 07:30: Fasting Glucose 87, Triglycerides 66, Cholesterol 206 H, LDL Cholesterol Direct 123, HDL Cholesterol 63 H 08/25/18 07:30: Carbamazepine 3 L Vital Signs Temp Pulse Resp BP Pulse Ox 08/26/18 16:00 84 103/58 L 08/26/18 06:36 97.5 F L 80 16 119/79 08/25/18 16:00 83 126/85 08/25/18 06:59 97.3 F L 116 H 20 107/73 08/25/18 02:17 18 08/24/18 20:09 98.1 F 63 17 141/99 H 97 DSM 5 Symptoms Update: Patient is 63 years old male with a self reported history of "OCD", depression anxiety, patient has multiple psychiatric admissions in the past, patient was transferred from [facility] for evaluation of "OCD and shakiness, I wanted medications to be reviewed", symptoms were getting worse for the past two months, transfer was uneventful. Patient was seen next to the nursing station, patient is vague with his symptoms, complaining of "resistance to all of the medications, what can we gave me? What is about Haldol? What is about Abilify? what is about thorazine...?" oddly related, per mother patient has history of psychosis. This assembly instructions writer edu cated patient about treatment plan, patient is in the process of being weaned off from doxepin, patient initially agreed to be on Seroquel, then changed his mind to Abilify, today patient said that he does not like Abilify and he was to be on Thorazine, this assembly instructions writer educated that Thorazine will be given to patient and this assembly instructions writer is not planning to change any psychiatric medications in the near future. Patient verbalized understanding. Neurontin discontinued, Prozac increased. pt was able to participate in meaningful discussion about his meds. pt presented to be depressed/flat affect/oddly related, but not acutely psychotic. As per staff, pt is spacing out, disengaged, at the same time no agitation no aggression. Patient tolerates medications well, no side effects observed or reported, aims 0, no EPS. DSM 5 Diagnosis: As per history schizoaffected disorder Alcohol use disorder Rule out alcohol/benzodiazepines withdrawals Medication Change: Yes (Abilify discontinued, Thorazine started, sonata increased) Medical Record Reviewed: Yes Consults ordered or reviewed: Patient was seen by Dr. Mcmahan, consult appreciated, please see notes for more detailed information Mental Status Examination - Cognitive Function Orientation: Person, Place Memory: Impaired Attention: Poor Concentration: Poor Association: Loose Fund of Knowledge: Poor - Mood Mood: Depressed, Anxious - Affect Affect: Constricted, Flat - Formal Thought Process Formal Thought Process: Other (Circumstantial thought process) - Suicidal Ideation Suicidal Ideation: No - Homicidal Ideation Homicidal Ideation: No Goal/Treatment Plan - Goal/Treatment Plan Need for Continued Stay: Remain at risks for inpatient hospitalization, Severe depression anxiety, Discharge may exacerbated symptoms, Severe functional impairment Progress Toward Problem(s) and Goals/Treatment Plan: Milieu/structure/supportive therapy SW consultation for discharge plan and social issues Med management Vitamins/thiamine/folic acid meds confirmed and resumed will monitor possible alcohol/benzodiazepines withdrawals Klonopin 2 mg 3 times a day for anxiety was continued Doxepin will be decreased to 50 mg at the nighttime, with a plan to wean as well Cymbalta was discontinued Prozac 40 mg daily for depression/anxiety/OCD Neurontin discontinued Sonata 10mg at night for insomnia abilify d/c thorazine 50mg po bid for psychosis and disorganized thoughts We will monitor vital signs Family involvement Follow up on labs Will monitor closely Pt was educated about risk/benefits and alternatives of medications, coping strategies (safety plan, suicide prevention), relapse prevention, importance of follow up with psychiatrist and therapist, stay away from drugs/alcohol/smoking Estimated Date of D/C: 09/01/18
[2018-08-29] MEDS: Doxepin HCL 10 mg/mL ORAL SOLUTION PO SCH (21:20)
[2018-08-29] MEDS: Alum-Mag Hydrox-Simethicone Susp (30 mL) PO PRN (22:44)
[2018-08-30] MEDS: Alum-Mag Hydrox-Simethicone Susp (30 mL) PO PRN (02:44)
[2018-08-30] MEDS: Multivitamin Therapeutic Tab PO SCH (10:28)
--- NOTE | 2018-08-30 11:49 | PCM.PYCHPN ---
Psychiatric Progress Note - Psychiatric Progress Note Patient seen today, length of contact: 30 minutes Problems Identified/Issues Discussed: I reviewed assessment and recent notes. Patient was interviewed in the dayroom. Grooming is unkempt and focus is inconsistent. At times patient appears thought blocked and appears to have issues with word retrieval. I agree with Dr. Pizarro's description, he has a vague yet disorganized presentation. He reports that he is tolerating thorazine and feels it has been beneficial. Sleep was restless and patient requests increase in thorazine. He does not request any further changes to his medication regimen though complains of heart burn associated with liquid doxepin. Denies any other new discomfort or pain. There were no major behavioral issues overnight. Diagnostic Results: As per history schizoaffected disorder Alcohol use disorder Rule out alcohol/benzodiazepines withdrawals Medication Change: Yes (thorazine increased) Medical Record Reviewed: Yes Mental Status Examination - Cognitive Function Orientation: Person, Place Memory: Impaired Attention: Poor Concentration: Poor Association: Loose Fund of Knowledge: Poor - Mood Mood: Depressed, Anxious - Affect Affect: Constricted, Flat - Formal Thought Process Formal Thought Process: Other (Circumstantial thought process, scattered, blocked) - Suicidal Ideation Suicidal Ideation: No - Homicidal Ideation Homicidal Ideation: No Goal/Treatment Plan - Goal/Treatment Plan Need for Continued Stay: Remain at risks for inpatient hospitalization, Severe depression anxiety, Discharge may exacerbated symptoms, Severe functional impairment Progress Toward Problem(s) and Goals/Treatment Plan: * c/w current tx and plan * No new weekend lab results noted thus far * Vitals reviewed and noted below: Selected Entries 08/29/18 08/29/18 07:00 16:39 Temperature 98.1 F Pulse Rate 80 99 H Respiratory 18 Rate Blood Pressure 95/61 L 130/93 H * Continue plan to taper and d/c doxepin as outlined in Dr. Pizarro's progress note. Thorazine increased to 100 mg po bid on 08/30/18 for disorganization. Estimated Date of D/C: 09/01/18
--- NOTE | 2018-08-30 17:31 | PN ---
DATE: 08/30/2018 SUBJECTIVE: I saw him on the psychiatric floor. He is presently comfortable. Feeling a little bit better mentally, smiled with me a little bit. MEDICATIONS: He is on Ativan, cortisone, folic acid, Geodon, Klonopin, Maalox, milk of magnesia, Prozac, Sonata, Thera-Tabs, Thorazine, and vitamin B1. PHYSICAL EXAMINATION: VITAL SIGNS: He has 98.1 temperature, 80 pulse, blood pressure is as high as 163/106 went down to 95/61 and it is 130/93. We will adjust blood pressure meds on him, 18 respiratory rate. HEENT: Head is atraumatic and normocephalic. HEART: Regular rate. LUNGS: Decreased breath sounds, but clear. ABDOMEN: Soft, obese, nontender. EXTREMITIES: No edema. ASSESSMENT AND PLAN: He is not getting anything presently right now for blood pressure, but his blood pressure is definitely rising. I am going to put him on some Norvasc 5 mg. He is also upset about doxepin 15 mg p.o. at bedtime. He states that the liquid form bothers him. He wants a tablet. We will do that if we can and we will add some Norvasc for his elevated blood pressure. Piyush Mcmahan DO
[2018-08-30] MEDS: Doxepin HCL 10 mg/mL ORAL SOLUTION PO SCH ×2 (21:09→21:26)
[2018-08-31] MEDS: Multivitamin Therapeutic Tab PO SCH (08:16)
[2018-08-31] MEDS ORDERED: Doxepin HCL 10 mg/mL ORAL SOLUTION PO SCH (10:15)
--- NOTE | 2018-08-31 10:15 | PCM.PYCHPN ---
Psychiatric Progress Note - Psychiatric Progress Note Patient seen today, length of contact: 30 minutes Problems Identified/Issues Discussed: I reviewed recent notes and met with patient in the hallway. Grooming is a little improved but he still appears unkempt. Focus is inconsistent and he still has trouble expressing himself in a goal-directed manner. He is oddly related and continues to have a vague and disorganized presentation. Affect is flat. Patient reports that he is tolerating thorazine and feels it has been beneficial. Sleep was restless and patient continues to complain about liquid doxepin. Otherwise he doesn't have any other concerns. He doesn't request an changes to his medications today. Denies any other new discomfort or pain. There were no major behavioral issues overnight. Diagnostic Results: As per history schizoaffected disorder Alcohol use disorder Rule out alcohol/benzodiazepines withdrawals Medication Change: Yes (doxepin decreased) Medical Record Reviewed: Yes Mental Status Examination - Cognitive Function Orientation: Person, Place Memory: Impaired Attention: Poor Concentration: Poor Association: Loose Fund of Knowledge: Poor - Mood Mood: Depressed, Anxious - Affect Affect: Constricted, Flat - Formal Thought Process Formal Thought Process: Other (Circumstantial thought process, scattered, blocked) - Suicidal Ideation Suicidal Ideation: No - Homicidal Ideation Homicidal Ideation: No Goal/Treatment Plan - Goal/Treatment Plan Need for Continued Stay: Remain at risks for inpatient hospitalization, Severe depression anxiety, Discharge may exacerbated symptoms, Severe functional impairment Progress Toward Problem(s) and Goals/Treatment Plan: * c/w current tx and plan * Appreciate f/u by Dr. Mcmahan on 08/30/18~started Norvasc 5 mg po daily for blood pressure * No new weekend lab results noted thus far * Vitals reviewed and noted below: Selected Entries 08/29/18 08/29/18 08/30/18 07:00 16:39 12:42 Temperature 98.1 F Pulse Rate 80 99 H 85 Respiratory 18 Rate Blood Pressure 95/61 L 130/93 H 139/93 H 08/30/18 16:18 Temperature Pulse Rate 105 H Respiratory Rate Blood Pressure 129/86 * Continue plan to taper and d/c doxepin as outlined in Dr. Pizarro's progress note. Thorazine increased to 100 mg po bid on 08/30/18 for disorganization and doxepin decreased to 25 mg po HS on 08/31/18. Estimated Date of D/C: 09/01/18
[2018-08-31] MEDS: Alum-Mag Hydrox-Simethicone Susp (30 mL) PO PRN ×2 (11:57→21:37)
--- NOTE | 2018-08-31 18:42 | PN ---
DATE: 08/31/2018 SUBJECTIVE: I saw him in the psychiatric floor. I do think he is starting to improve mentally. He is having better conversation with me as time goes on. He is no distress this morning. MEDICATIONS: He is on Ativan, Cortizone, folic acid, Geodon, Klonopin, Maalox, milk of magnesia, Norvasc, Prozac, Sonata, Thera-Tabs, Thorazine and vitamin B1. He thinks the Thorazine is really helping him. PHYSICAL EXAMINATION: VITAL SIGNS: He has a 97.4 temp, 105 pulse, 101/70 blood pressure and 18 respiratory rate. HEENT: Head is atraumatic and normocephalic. HEART: Regular rate. LUNGS: Clear to auscultation. ABDOMEN: Soft and obese. EXTREMITIES: No edema. He is in good spirits overall continue with aggressive treatment and care he has hypertension and depression. Piyush Mcmahan DO MTDD
[2018-09-01] MEDS: Multivitamin Therapeutic Tab PO SCH (08:28)
--- NOTE | 2018-09-01 11:44 | PN ---
DATE: 09/01/2018 SUBJECTIVE: I saw him this morning in the psychiatric floor. He is alert, walking. He is eating okay. He had a hard time sleeping. He is on Ativan, cortisone, folic acid, Geodon, Klonopin, Maalox, milk of magnesia, Norvasc, Prozac, Sonata, Thera-Tabs, Thorazine, and vitamin B1. PHYSICAL EXAMINATION: VITAL SIGNS: He has 97.4 temperature, 90 pulse, 111/76 blood pressure, and 20 respiratory rate. GENERAL: He is eating well, walking well, just did not sleep well. He thinks he is getting better mentally . HEENT: His head is atraumatic, normocephalic. HEART: Regular rate. LUNGS: Decreased breath sounds, but clear. ABDOMEN: Soft, obese, nontender. Positive bowel sounds. EXTREMITIES: No edema. I encouraged him to continue to participate in therapy, take the medications, and hopefully we will adjust his sleepy medications as per Psychiatry. I encouraged him to continue to do well, I think he is. ASSESSMENT AND PLAN: Anxiety, depression, schizoaffective disorder, obsessive compulsive disorder, positive smoking and alcohol. We will follow. Piyush Mcmahan DO MTDAvani
--- NOTE | 2018-09-01 11:57 | PCM.BM ---
<MarcusDanielle Y - Last Filed: 09/01/18 11:57> Treatment Plan Problems - Problems identified on initial assessmt Ineffective coping Date Initiated: 08/24/18 Time Initiated: 21:50 Assessment reference: NA Status: Active Priority: 1 Hopelessness Date Initiated: 08/24/18 Time Initiated: 22:45 Assessment reference: NA Status: Active Priority: 2 Social isolation Date Initiated: 08/24/18 Time Initiated: 22:50 Assessment reference: NA Status: Active Priority: 3 Substance abuse\\ Date Initiated: 08/24/18 Time Initiated: 23:00 Assessment reference: NA Status: Active Priority: 4 Anxiety Date Initiated: 08/24/18 Time Initiated: 21:50 Assessment reference: NA Status: Active Priority: 1 Altered health maintenance Date Initiated: 08/24/18 Time Initiated: 22:50 Assessment reference: NA Status: Active Priority: 3 Treatment assets and liabiliti Patient Assests: cooperative, ADL independent, physically healthy Patient Liabilities: poor support system, relationship conflicts, substance abuse - Milieu Protocol Maintain good personal hygiene: daily Encourage regular showers, daily Remind patient to perform daily oral care, daily Assist patient to perform ADL's Conduct patient checks and document Observation sheet: Q15 minutes Maintain personal safety: daily Educate patient to report safety concerns to staff, daily Monitor environment for contraband/sharps Medication safety: Monitor for expected outcome, potential side effects: daily, Assess barriers to learning: daily, Assess readiness for medication education: daily Milieu Narrative: * c/w current tx and plan * Appreciate f/u by Dr. Mcmahan on 08/30/18~started Norvasc 5 mg po daily for blood pressure * No new weekend lab results noted thus far * Vitals reviewed and noted below: Selected Entries 08/29/18 08/29/18 08/30/18 07:00 16:39 12:42 Temperature 98.1 F Pulse Rate 80 99 H 85 Respiratory 18 Rate Blood Pressure 95/61 L 130/93 H 139/93 H 08/30/18 16:18 Temperature Pulse Rate 105 H Respiratory Rate Blood Pressure 129/86 * Continue plan to taper and d/c doxepin as outlined in Dr. Pizarro's progress note. Thorazine increased to 100 mg po bid on 08/30/18 for disorganization and doxepin decreased to 25 mg po HS on 08/31/18. Family Contact Family contact: Patient agrees to contact Family contact name: Li Hewitt(mother) Family contacted how many times per week?: 2 - Goals for Treatment Patient goals for treatment: "I need my medications changed." Discharge/Continuing Care - Education Needs Education Needs: Patient Medication, Patient Coping Skills, Patient Community resources - Discharge Discharge Criteria: Tolerates medication w/o severe side effects - Treatment Team Participation Patient/Family/SO Statement: * c/w current tx and plan * Appreciate f/u by Dr. Mcmahan on 08/30/18~started Norvasc 5 mg po daily for blood pressure * No new weekend lab results noted thus far * Vitals reviewed and noted below: Selected Entries 08/29/18 08/29/18 08/30/18 07:00 16:39 12:42 Temperature 98.1 F Pulse Rate 80 99 H 85 Respiratory 18 Rate Blood Pressure 95/61 L 130/93 H 139/93 H 08/30/18 16:18 Temperature Pulse Rate 105 H Respiratory Rate Blood Pressure 129/86 * Continue plan to taper and d/c doxepin as outlined in Dr. Pizarro's progress note. Thorazine increased to 100 mg po bid on 08/30/18 for disorganization and doxepin decreased to 25 mg po HS on 08/31/18. Treatment Plan Review - Problem Ineffective coping Time Initiated: 21:50 Hopelessness Time Initiated: 22:45 Social isolation Time Initiated: 22:50 Substance abuse\\ Time Initiated: 23:00 Anxiety Time Initiated: 21:50 Altered health maintenance Time Initiated: 22:50 <Madelyn Pizarro A - Last Filed: 09/03/18 15:25> - Diagnosis (1) Schizoaffective disorder Status: Acute Interventions: 09/01/18 16:04 Compliant with her medications, tolerating them well, no psychosis as of now 09/01/18 16:05 (2) Alcohol use disorder Status: Acute Interventions: 09/01/18 16:05 No withdrawal symptoms, patient has poor insight into his alcohol addiction (3) OCD (obsessive compulsive disorder) Status: Acute Interventions: 09/01/18 16:05 Under control CBT/DBT as outpatient
--- NOTE | 2018-09-01 16:17 | PCM.PYCHPN ---
Psychiatric Progress Note - Psychiatric Progress Note Patient seen today, length of contact: 30 minutes Patient Chief Complaint: "I feel relaxed..." Problems Identified/Issues Discussed: Medications, risk/benefits/alternatives, of meds, discharge plan, safety plan. Medical Problems: See HPI Diagnostic Results: 08/26/18 07:40 08/26/18 07:40 Lab Results 08/26/18 07:40: Sodium 139, Potassium 3.6, Chloride 109 H, Carbon Dioxide 25, Anion Gap 9 L, BUN 9, Creatinine 0.6 L, Est GFR ( Amer) > 60, Est GFR (Non-Af Amer) > 60, Random Glucose 89, Calcium 8.6, Total Bilirubin 0.8, AST 43, ALT 25, Alkaline Phosphatase 91, Total Protein 6.8, Albumin 3.3, Globulin 3.6, Albumin/Globulin Ratio 0.9 L 08/26/18 07:40: WBC 6.2, RBC 4.25, Hgb 15.2, Hct 44.1, MCV 103.8, MCH 35.8 H, MCHC 34.5, RDW 13.3, Plt Count 121, MPV 10.7 08/25/18 07:30: TSH 3rd Generation 1.94 08/25/18 07:30: Fasting Glucose 87, Triglycerides 66, Cholesterol 206 H, LDL Cholesterol Direct 123, HDL Cholesterol 63 H 08/25/18 07:30: Carbamazepine 3 L Vital Signs Temp Pulse Resp BP Pulse Ox 08/26/18 16:00 84 103/58 L 08/26/18 06:36 97.5 F L 80 16 119/79 08/25/18 16:00 83 126/85 08/25/18 06:59 97.3 F L 116 H 20 107/73 08/25/18 02:17 18 08/24/18 20:09 98.1 F 63 17 141/99 H 97 DSM 5 Symptoms Update: Patient is 63 years old male with a self reported history of "OCD", depression anxiety, patient has multiple psychiatric admissions in the past, patient was transferred from [facility] for evaluation of "OCD and shakiness, I wanted medications to be reviewed", symptoms were getting worse for the past two months, transfer was uneventful. Patient was seen at the treatment team meeting room with SW, pt presented to be disengaged, withdrawn, but reported to feel "relaxed", pt denied any thoughts of harming self or others. patient is in the process of being weaned off from doxepin, tolerated well. thorazine was increased to 100mg bid over this weekend. pt was able to participate in meaningful discussion about his meds. pt presented to be depressed/flat affect/oddly related, but not acutely psychotic. As per staff, pt is spacing out, disengaged, at the same time no agitation no aggression. Patient tolerates medications well, no side effects observed or reported, aims 0, no EPS. DSM 5 Diagnosis: As per history schizoaffected disorder Alcohol use disorder Rule out alcohol/benzodiazepines withdrawals Medication Change: Yes (doxepin d/c) Medical Record Reviewed: Yes Mental Status Examination - Cognitive Function Orientation: Person, Place Memory: Impaired Attention: Poor Concentration: Poor Association: Loose Fund of Knowledge: Poor - Mood Mood: Depressed, Anxious - Affect Affect: Constricted, Flat - Formal Thought Process Formal Thought Process: Other (Circumstantial thought process, scattered, blocked) - Suicidal Ideation Suicidal Ideation: No - Homicidal Ideation Homicidal Ideation: No Goal/Treatment Plan - Goal/Treatment Plan Need for Continued Stay: Remain at risks for inpatient hospitalization, Severe depression anxiety, Discharge may exacerbated symptoms, Severe functional impairment Progress Toward Problem(s) and Goals/Treatment Plan: Milieu/structure/supportive therapy SW consultation for discharge plan and social issues Med management Vitamins/thiamine/folic acid meds confirmed and resumed will monitor possible alcohol/benzodiazepines withdrawals Klonopin 1.5 mg 3 times a day for anxiety was continued Doxepin d/c Cymbalta was discontinued Prozac 40 mg daily for depression/anxiety/OCD Neurontin discontinued Sonata 10mg at night for insomnia abilify d/c thorazine 100mg po bid for psychosis and disorganized thoughts We will monitor vital signs Family involvement Follow up on labs Will monitor closely Pt was educated about risk/benefits and alternatives of medications, coping strategies (safety plan, suicide prevention), relapse prevention, importance of follow up with psychiatrist and therapist, stay away from drugs/alcohol/smoking Estimated Date of D/C: 09/03/18
[2018-09-01] MEDS: Alum-Mag Hydrox-Simethicone Susp (30 mL) PO PRN (21:07)
[2018-09-02] MEDS: Multivitamin Therapeutic Tab PO SCH (08:23)
[2018-09-02] MEDS: MetroNIDAZOLE 0.75% Cream(45 gm) TOP SCH ×2 (13:51→17:43)
--- NOTE | 2018-09-02 13:53 | PN ---
DATE: 09/02/2018 SUBJECTIVE: I saw him in the intensive care unit. He tells me he is doing a little bit better than when he came in. He is eating well. He is taking the medications well. He does not feel anxious or depressed. His face has some skin excoriations. He is given hydrocortisone cream in order to get . We are going to try him on MetroGel to see if help his face, skin issues. PHYSICAL EXAMINATION: GENERAL: He is eating well, better mentally. VITAL SIGNS: 98 temperature, 92 pulse, 119/85 blood pressure, 20 respiratory rate. HEENT: His head is atraumatic, normocephalic. HEART: Regular rate. LUNGS: Decreased breath sounds. ABDOMEN: Soft, obese. EXTREMITIES: No edema. He is walking. I will start the hydrocortisone cream, try him on MetroGel cream and hoping to do well and continue as per Psychiatry. We will follow. IMPRESSION: Anxiety, depression, schizoaffective disorder, obsessive-compulsive disorder, smoking and drinking, hypertension, and facial dermatitis. Piyush Mcmahan DO MTDAvani
--- NOTE | 2018-09-02 14:06 | PCM.PYCHPN ---
Psychiatric Progress Note - Psychiatric Progress Note Patient seen today, length of contact: 30 minutes Patient Chief Complaint: "I am doing little better, but can you increase thorazine because I am not on any doxepine.." Problems Identified/Issues Discussed: Medications, risk/benefits/alternatives, of meds, discharge plan, safety plan. Medical Problems: See HPI Diagnostic Results: 08/26/18 07:40 08/26/18 07:40 Lab Results 08/26/18 07:40: Sodium 139, Potassium 3.6, Chloride 109 H, Carbon Dioxide 25, Anion Gap 9 L, BUN 9, Creatinine 0.6 L, Est GFR ( Amer) > 60, Est GFR (Non-Af Amer) > 60, Random Glucose 89, Calcium 8.6, Total Bilirubin 0.8, AST 43, ALT 25, Alkaline Phosphatase 91, Total Protein 6.8, Albumin 3.3, Globulin 3.6, Albumin/Globulin Ratio 0.9 L 08/26/18 07:40: WBC 6.2, RBC 4.25, Hgb 15.2, Hct 44.1, MCV 103.8, MCH 35.8 H, MCHC 34.5, RDW 13.3, Plt Count 121, MPV 10.7 08/25/18 07:30: TSH 3rd Generation 1.94 08/25/18 07:30: Fasting Glucose 87, Triglycerides 66, Cholesterol 206 H, LDL Cholesterol Direct 123, HDL Cholesterol 63 H 08/25/18 07:30: Carbamazepine 3 L Vital Signs Temp Pulse Resp BP Pulse Ox 08/26/18 16:00 84 103/58 L 08/26/18 06:36 97.5 F L 80 16 119/79 08/25/18 16:00 83 126/85 08/25/18 06:59 97.3 F L 116 H 20 107/73 08/25/18 02:17 18 08/24/18 20:09 98.1 F 63 17 141/99 H 97 DSM 5 Symptoms Update: Patient is 63 years old male with a self reported history of "OCD", depression anxiety, patient has multiple psychiatric admissions in the past, patient was transferred from [facility] for evaluation of "OCD and shakiness, I wanted medications to be reviewed", symptoms were getting worse for the past two months, transfer was uneventful. Patient was seen at the treatment team meeting room with SW, pt presented to be disengaged, withdrawn, patient asked to increase his thorazine. doxepin was d/c 09/01/18, tolerated well. thorazine 100mg tid 09/02/18. pt was able to participate in meaningful discussion about his meds. pt presented to be depressed/flat affect/oddly related, but not acutely psychotic. As per staff, pt is spacing out, disengaged, at the same time no agitation no aggression. Patient tolerates medications well, no side effects observed or reported, aims 0, no EPS. DSM 5 Diagnosis: As per history schizoaffected disorder Alcohol use disorder Rule out alcohol/benzodiazepines withdrawals Medication Change: Yes (Klonopin decreased, Thorazine increased.) Medical Record Reviewed: Yes Consults ordered or reviewed: Patient was seen by Dr. Mcmahan, consult appreciated, please see notes for more detailed information Mental Status Examination - Cognitive Function Orientation: Person, Place Memory: Impaired Attention: Poor Concentration: Poor Association: Loose Fund of Knowledge: Poor - Mood Mood: Depressed, Anxious - Affect Affect: Constricted, Flat - Formal Thought Process Formal Thought Process: Other (Circumstantial thought process, scattered, blocked) - Suicidal Ideation Suicidal Ideation: No - Homicidal Ideation Homicidal Ideation: No Goal/Treatment Plan - Goal/Treatment Plan Need for Continued Stay: Remain at risks for inpatient hospitalization, Severe depression anxiety, Discharge may exacerbated symptoms, Severe functional impairment Progress Toward Problem(s) and Goals/Treatment Plan: Milieu/structure/supportive therapy SW consultation for discharge plan and social issues Med management Vitamins/thiamine/folic acid meds confirmed and resumed will monitor possible alcohol/benzodiazepines withdrawals Klonopin 1 mg 4 times a day for anxiety was continued Doxepin d/c Cymbalta was discontinued Prozac 40 mg daily for depression/anxiety/OCD Neurontin discontinued Sonata 10mg at night for insomnia abilify d/c thorazine 100mg po bid and 100mg hs for psychosis and disorganized thoughts We will monitor vital signs Family involvement Follow up on labs Will monitor closely Pt was educated about risk/benefits and alternatives of medications, coping strategies (safety plan, suicide prevention), relapse prevention, importance of follow up with psychiatrist and therapist, stay away from drugs/alcohol/smoking Discharge planning. Patient will be not accepted to the previous boarding home. Estimated Date of D/C: 09/04/18
[2018-09-03] MEDS: Multivitamin Therapeutic Tab PO SCH (08:57)
[2018-09-03] MEDS: MetroNIDAZOLE 0.75% Cream(45 gm) TOP SCH ×2 (08:59→17:55)
--- NOTE | 2018-09-03 11:16 | PN ---
DATE: 09/03/2018 SUBJECTIVE: I saw him in the psychiatric floor. He is doing a bit better. Still a little bit flat affect, but better than when he came in. He is being told he is being discharge tomorrow. He is going to go to a living facility for him. MEDICATIONS: He is going to be on Ativan, folic acid, Geodon, Klonopin, Maalox, MetroGel cream for the face, milk of magnesia, Norvasc, Prozac, Sonata, Thera-Tabs, Thorazine, vitamin B1. PHYSICAL EXAMINATION: VITAL SIGNS: He has a 97.5 temperature, 84 pulse, 135/94 blood pressure, 119/84 blood pressure, 20 respiratory rate. HEENT: Head is atraumatic, normocephalic. HEART: Regular rate. LUNGS: Decreased breath sounds, but clear. ABDOMEN: Soft, obese. EXTREMITIES: No edema. I think he is looking forward to getting out of the psychiatric floor, be discharged tomorrow, hopefully to this living facility. Hopefully, he will do very well. He had anxiety, depression, hypertension, schizoaffective disorder, obsessive-compulsive disorder, smoking, drinking. I am hoping that he does not smoke anymore, he does not drink anymore. I think it will go long way with him. I will see him tomorrow before he leaves. Piyush Mcmahan DO
--- NOTE | 2018-09-03 15:29 | PCM.PYCHPN ---
Psychiatric Progress Note - Psychiatric Progress Note Patient seen today, length of contact: 30 minutes Patient Chief Complaint: "I do not want to go to [facility]..." Problems Identified/Issues Discussed: Medications, risk/benefits/alternatives, of meds, discharge plan, safety plan. Medical Problems: See HPI Diagnostic Results: 08/26/18 07:40 08/26/18 07:40 Lab Results 08/26/18 07:40: Sodium 139, Potassium 3.6, Chloride 109 H, Carbon Dioxide 25, Anion Gap 9 L, BUN 9, Creatinine 0.6 L, Est GFR ( Amer) > 60, Est GFR (Non-Af Amer) > 60, Random Glucose 89, Calcium 8.6, Total Bilirubin 0.8, AST 43, ALT 25, Alkaline Phosphatase 91, Total Protein 6.8, Albumin 3.3, Globulin 3.6, Albumin/Globulin Ratio 0.9 L 08/26/18 07:40: WBC 6.2, RBC 4.25, Hgb 15.2, Hct 44.1, MCV 103.8, MCH 35.8 H, MCHC 34.5, RDW 13.3, Plt Count 121, MPV 10.7 08/25/18 07:30: TSH 3rd Generation 1.94 08/25/18 07:30: Fasting Glucose 87, Triglycerides 66, Cholesterol 206 H, LDL Cholesterol Direct 123, HDL Cholesterol 63 H 08/25/18 07:30: Carbamazepine 3 L Vital Signs Temp Pulse Resp BP Pulse Ox 08/26/18 16:00 84 103/58 L 08/26/18 06:36 97.5 F L 80 16 119/79 08/25/18 16:00 83 126/85 08/25/18 06:59 97.3 F L 116 H 20 107/73 08/25/18 02:17 18 08/24/18 20:09 98.1 F 63 17 141/99 H 97 DSM 5 Symptoms Update: Patient is 63 years old male with a self reported history of "OCD", depression anxiety, patient has multiple psychiatric admissions in the past, patient was transferred from [facility] for evaluation of "OCD and shakiness, I wanted medications to be reviewed", symptoms were getting worse for the past two months, transfer was uneventful. Patient was seen, personal hygiene is very poor, patient smells like urine, long/uncombed hair. doxepin was d/c 09/01/18, tolerated well. thorazine 100mg tid 09/02/18. pt was able to participate in meaningful discussion about his meds. At the same time patient gives hard time to the social science research assistant about discharge planning, patient was accepted by [facility], but patient refused to go there because "it to disprove for, if patient will be not accepted there patient will become homeless, this law writer attempted to discuss it with the patient but patient became angry sad "what do you mean? I have income, I can go whenever I want..." pt presented to be depressed/flat affect/oddly related, but not acutely psychotic. As per staff, pt is spacing out, disengaged, at the same time no agitation no aggression. Patient tolerates medications well, no side effects observed or reported, aims 0, no EPS. DSM 5 Diagnosis: As per history schizoaffected disorder Alcohol use disorder Rule out alcohol/benzodiazepines withdrawals Medication Change: Yes (Klonopin decreased) Medical Record Reviewed: Yes Consults ordered or reviewed: Patient was seen by Dr. Mcmahan, consult appreciated, please see notes for more detailed information Mental Status Examination - Cognitive Function Orientation: Person, Place Memory: Impaired Attention: Poor Concentration: Poor Association: Loose Fund of Knowledge: Poor - Mood Mood: Depressed, Anxious - Affect Affect: Constricted, Flat - Formal Thought Process Formal Thought Process: Other (Circumstantial thought process, scattered, blocked) - Suicidal Ideation Suicidal Ideation: No - Homicidal Ideation Homicidal Ideation: No Goal/Treatment Plan - Goal/Treatment Plan Need for Continued Stay: Remain at risks for inpatient hospitalization, Severe depression anxiety, Discharge may exacerbated symptoms, Severe functional impairment Progress Toward Problem(s) and Goals/Treatment Plan: Milieu/structure/supportive therapy SW consultation for discharge plan and social issues Med management Vitamins/thiamine/folic acid meds confirmed and resumed will monitor possible alcohol/benzodiazepines wit hdrawals Klonopin 1 mg 3 times a day for anxiety was continued Doxepin d/c Cymbalta was discontinued Prozac 40 mg daily for depression/anxiety/OCD Neurontin discontinued Sonata 10mg at night for insomnia abilify d/c thorazine 100mg po bid and 100mg hs for psychosis and disorganized thoughts We will monitor vital signs Family involvement Follow up on labs Will monitor closely Pt was educated about risk/benefits and alternatives of medications, coping strategies (safety plan, suicide prevention), relapse prevention, importance of follow up with psychiatrist and therapist, stay away from drugs/alcohol/smoking Discharge planning. Patient will be not accepted to the previous boarding home. Estimated Date of D/C: 09/04/18
[2018-09-04] MEDS: MetroNIDAZOLE 0.75% Cream(45 gm) TOP SCH ×2 (08:23→15:47)
[2018-09-04] MEDS: Multivitamin Therapeutic Tab PO SCH (08:26)
--- NOTE | 2018-09-04 13:04 | PN ---
DATE: 09/04/2018 SUBJECTIVE: I saw him in the psychiatric floor. He is walking around fairly well. He is eating well. He is taking his medication. I think he has improved since he has been there psychologically. He is on Ativan, folic acid, Geodon, Klonopin, MetroGel, Norvasc, Prozac, Thorazine, and vitamins. PHYSICAL EXAMINATION: VITAL SIGNS: He has a 97.6 temp, 90 pulse, 127/88 blood pressure, 20 respiratory rate. HEENT: Head is atraumatic, normocephalic. HEART: Regular rate. LUNGS: Decreased breath sounds. ABDOMEN: Soft, obese. EXTREMITIES: No edema. ASSESSMENT AND PLAN: His blood pressure improved. He is walking well. I am not sure when the discharge planning is for him. We will see how Psychiatry sees him. I encouraged him to participate in psychiatric meetings and take the medication and I hope he will progress and improve. Piyush Mcmahan DO
--- NOTE | 2018-09-04 15:11 | PCM.PYCHPN ---
Psychiatric Progress Note - Psychiatric Progress Note Patient seen today, length of contact: 30 minutes Patient Chief Complaint: "I can go whenever I chose, I have an income.." Problems Identified/Issues Discussed: Medications, risk/benefits/alternatives, of meds, discharge plan, safety plan. Medical Problems: See HPI Diagnostic Results: 08/26/18 07:40 08/26/18 07:40 Lab Results 08/26/18 07:40: Sodium 139, Potassium 3.6, Chloride 109 H, Carbon Dioxide 25, Anion Gap 9 L, BUN 9, Creatinine 0.6 L, Est GFR ( Amer) > 60, Est GFR (Non-Af Amer) > 60, Random Glucose 89, Calcium 8.6, Total Bilirubin 0.8, AST 43, ALT 25, Alkaline Phosphatase 91, Total Protein 6.8, Albumin 3.3, Globulin 3.6, Albumin/Globulin Ratio 0.9 L 08/26/18 07:40: WBC 6.2, RBC 4.25, Hgb 15.2, Hct 44.1, MCV 103.8, MCH 35.8 H, MCHC 34.5, RDW 13.3, Plt Count 121, MPV 10.7 08/25/18 07:30: TSH 3rd Generation 1.94 08/25/18 07:30: Fasting Glucose 87, Triglycerides 66, Cholesterol 206 H, LDL Cholesterol Direct 123, HDL Cholesterol 63 H 08/25/18 07:30: Carbamazepine 3 L Vital Signs Temp Pulse Resp BP Pulse Ox 08/26/18 16:00 84 103/58 L 08/26/18 06:36 97.5 F L 80 16 119/79 08/25/18 16:00 83 126/85 08/25/18 06:59 97.3 F L 116 H 20 107/73 08/25/18 02:17 18 08/24/18 20:09 98.1 F 63 17 141/99 H 97 DSM 5 Symptoms Update: Patient is 63 years old male with a self reported history of "OCD", depression anxiety, patient has multiple psychiatric admissions in the past, patient was transferred from [facility] for evaluation of "OCD and shakiness, I wanted medications to be reviewed", symptoms were getting worse for the past two months, transfer was uneventful. Patient was seen, personal hygiene is very poor, patient smells like urine, long/uncombed hair. doxepin was d/c 09/01/18, tolerated well. thorazine 100mg tid 09/02/18. pt was able to participate in meaningful discussion about his meds. At the same time patient gives hard time to the medical social worker about discharge planning, patient was accepted by [facility] boarding home, but patient refused to go there because "it is too far", at the same time pt is grandiose, has unrealistic plans to "go anywhere I want, I have an income, I have money saved.." pt presented to be depressed/flat affect/oddly related, disorganized, but not acutely psychotic. As per staff, pt is spacing out, disengaged, at the same time no agitation no aggression. Patient complained of anxiety today, stat dose of Klonopin given. Patient tolerates medications well, no side effects observed or reported, aims 0, no EPS. DSM 5 Diagnosis: As per history schizoaffected disorder Alcohol use disorder Rule out alcohol/benzodiazepines withdrawals Medication Change: No Medical Record Reviewed: Yes Mental Status Examination - Cognitive Function Orientation: Person, Place Memory: Impaired Attention: Poor Concentration: Poor Association: Loose Fund of Knowledge: Poor - Mood Mood: Depressed, Anxious - Affect Affect: Constricted, Flat - Formal Thought Process Formal Thought Process: Other (Circumstantial thought process, scattered, blocked) - Suicidal Ideation Suicidal Ideation: No - Homicidal Ideation Homicidal Ideation: No Goal/Treatment Plan - Goal/Treatment Plan Need for Continued Stay: Remain at risks for inpatient hospitalization, Severe depression anxiety, Discharge may exacerbated symptoms, Severe functional impairment Progress Toward Problem(s) and Goals/Treatment Plan: Milieu/structure/supportive therapy SW consultation for discharge plan and social issues Med management Vitamins/thiamine/folic acid meds confirmed and resumed will monitor possible alcohol/benzodiazepines withd rawals Klonopin 1 mg 3 times a day for anxiety was continued Doxepin d/c Cymbalta was discontinued Prozac 40 mg daily for depression/anxiety/OCD Neurontin discontinued Sonata 10mg at night for insomnia abilify d/c thorazine 100mg po bid and 100mg hs for psychosis and disorganized thoughts We will monitor vital signs Family involvement Follow up on labs Will monitor closely Pt was educated about risk/benefits and alternatives of medications, coping strategies (safety plan, suicide prevention), relapse prevention, importance of follow up with psychiatrist and therapist, stay away from drugs/alcohol/smoking Discharge planning. [facility], pt was accepted pt needs to come on Saturday because of the [facility] policy of not accepting pt on Saturday/Saturday and Saturday. Estimated Date of D/C: 09/08/18
[2018-09-05] MEDS: Multivitamin Therapeutic Tab PO SCH (08:54)
[2018-09-05] MEDS: MetroNIDAZOLE 0.75% Cream(45 gm) TOP SCH ×2 (08:56→17:35)
--- NOTE | 2018-09-05 12:56 | PN ---
DATE: 09/05/2018 SUBJECTIVE: I saw him in his room, resting in bed. He is doing well. No complaints at this time. He is eating well, walking well. MEDICATIONS: He is on Ativan, folic acid, Geodon, Klonopin, Maalox, MetroGel cream, milk of magnesia, Norvasc, Prozac, Sonata, Thera-Tabs, Thorazine, and vitamin B1. PHYSICAL EXAMINATION: VITAL SIGNS: He has a 97.6 temperature, 89 pulse, 118/75 blood pressure, 20 respiratory rate. HEENT: Head is atraumatic, normocephalic. HEART: Regular rate. LUNGS: Clear to auscultation. ABDOMEN: Soft, nontender, positive bowel sounds. Obese. EXTREMITIES: No edema. As per Psychiatry. I am hoping that he could be discharged soon. He wants to go home soon. His blood pressure is very good. He had anxiety, hypertension, schizoaffective disorder, obsessive-compulsive disorder, alcohol, and smoking. I asked him to quit, hopefully he will as per psychiatrist. Piyush Mcmahan DO MTDAvani
--- NOTE | 2018-09-05 15:05 | PCM.PYCHPN ---
Psychiatric Progress Note - Psychiatric Progress Note Patient seen today, length of contact: 30 minutes Patient Chief Complaint: "all is well" Problems Identified/Issues Discussed: Medications, risk/benefits/alternatives, of meds, discharge plan, safety plan. Medical Problems: See HPI Diagnostic Results: 08/26/18 07:40 08/26/18 07:40 Lab Results 08/26/18 07:40: Sodium 139, Potassium 3.6, Chloride 109 H, Carbon Dioxide 25, Anion Gap 9 L, BUN 9, Creatinine 0.6 L, Est GFR ( Amer) > 60, Est GFR (Non-Af Amer) > 60, Random Glucose 89, Calcium 8.6, Total Bilirubin 0.8, AST 43, ALT 25, Alkaline Phosphatase 91, Total Protein 6.8, Albumin 3.3, Globulin 3.6, Albumin/Globulin Ratio 0.9 L 08/26/18 07:40: WBC 6.2, RBC 4.25, Hgb 15.2, Hct 44.1, MCV 103.8, MCH 35.8 H, MCHC 34.5, RDW 13.3, Plt Count 121, MPV 10.7 08/25/18 07:30: TSH 3rd Generation 1.94 08/25/18 07:30: Fasting Glucose 87, Triglycerides 66, Cholesterol 206 H, LDL Cholesterol Direct 123, HDL Cholesterol 63 H 08/25/18 07:30: Carbamazepine 3 L Vital Signs Temp Pulse Resp BP Pulse Ox 08/26/18 16:00 84 103/58 L 08/26/18 06:36 97.5 F L 80 16 119/79 08/25/18 16:00 83 126/85 08/25/18 06:59 97.3 F L 116 H 20 107/73 08/25/18 02:17 18 08/24/18 20:09 98.1 F 63 17 141/99 H 97 DSM 5 Symptoms Update: Patient is 63 years old male with a self reported history of "OCD", depression anxiety, patient has multiple psychiatric admissions in the past, patient was transferred from [facility] for evaluation of "OCD and shakiness, I wanted medications to be reviewed", symptoms were getting worse for the past two months, transfer was uneventful. Patient was seen, personal hygiene is very poor, patient smells like urine, long/uncombed hair. doxepin was d/c 09/01/18, tolerated well. thorazine 100mg tid 09/02/18. pt was able to participate in meaningful discussion about his meds. pt has poor insight into his alcohol addiction, as well as discharge plan. pt reported that he feels that "all is well..", gives hard time to the social science analyst about discharge planning, patient was accepted by [facility], but patient refused to go there because "it is too far", at the same time pt is grandiose, has unrealistic plans to "go anywhere I want, I have an income, I have money saved.." pt presented to be depressed/flat affect/oddly related, disorganized, but not acutely psychotic. pt could be accepted to the boarding home upcoming Saturday. pt has no insight into his alcohol addiction, thi s brief writer educated pt about naltrexone, but pt refused. As per staff, pt is spacing out, disengaged, at the same time no agitation no aggression. no anxiety today. Patient tolerates medications well, no side effects observed or reported, aims 0, no EPS. DSM 5 Diagnosis: As per history schizoaffected disorder Alcohol use disorder Rule out alcohol/benzodiazepines withdrawals Medication Change: No Medical Record Reviewed: Yes Mental Status Examination - Cognitive Function Orientation: Person, Place Memory: Impaired Attention: Poor (some improvement) Concentration: Poor (some improvement) Association: Loose Fund of Knowledge: Poor - Mood Mood: Depressed, Anxious - Affect Affect: Constricted, Flat - Formal Thought Process Formal Thought Process: Other (Circumstantial thought process, scattered, blocked) - Suicidal Ideation Suicidal Ideation: No - Homicidal Ideation Homicidal Ideation: No Goal/Treatment Plan - Goal/Treatment Plan Need for Continued Stay: Remain at risks for inpatient hospitalization, Severe depression anxiety, Discharge may exacerbated symptoms, Severe functional impairment Progress Toward Problem(s) and Goals/Treatment Plan: Milieu/structure/supportive therapy SW consultation for discharge plan and social issues Med management Vitamins/thiamine/folic acid meds confirmed and resumed will monitor possible alcohol/benzodiazepines withdrawals Klonopin 1 mg 3 times a day for anxiety was continued Prozac 40 mg daily for depression/anxiety/OCD Sonata 10mg at night for insomnia thorazine 100mg po bid and 100mg hs for psychosis and disorganized thoughts We will monitor vital signs Family involvement Follow up on labs Will monitor closely Pt was educated about risk/benefits and alternatives of medications, coping strategies (safety plan, suicide prevention), relapse prevention, importance of follow up with psychiatrist and therapist, stay away from drugs/alcohol/smoking Discharge planning. [facility], pt was accepted pt needs to come on Saturday because of the [facility] [place] policy of not accepting pt on Saturday/Saturday and Saturday. Estimated Date of D/C: 09/08/18
--- NOTE | 2018-09-06 08:58 | PCM.PYCHPN ---
Psychiatric Progress Note - Psychiatric Progress Note Patient seen today, length of contact: 30 minutes Problems Identified/Issues Discussed: I reviewed recent notes and met with patient at bedside. He is known to me from prior interviews last weekend during this admission. He continues to appear unkempt with inconsistent focus though responses are more goal directed and confident this morning. Thought blocking remains and he still has trouble expressing himself at times. He is oddly related and continues to have a vague and scattered presentation. Patient reports that he is tolerating his medications and denies any major side effects. He is still not sleeping well and reports "feeling more nervous" since benzo was decreased. He doesn't appear to be in any emotional distress, affect remains flat and he isn't responding to internal stimuli. There were no major behavioral issues overnight. Diagnostic Results: As per history schizoaffected disorder Alcohol use disorder Rule out alcohol/benzodiazepines withdrawals Medication Change: No Medical Record Reviewed: Yes Mental Status Examination - Cognitive Function Orientation: Person, Place Memory: Impaired Attention: Poor (some improvement) Concentration: Poor (some improvement) Association: Loose Fund of Knowledge: Poor - Mood Mood: Depressed, Anxious - Affect Affect: Constricted, Flat - Formal Thought Process Formal Thought Process: Other (Circumstantial thought process, scattered, blocked) - Suicidal Ideation Suicidal Ideation: No - Homicidal Ideation Homicidal Ideation: No Goal/Treatment Plan - Goal/Treatment Plan Need for Continued Stay: Remain at risks for inpatient hospitalization, Severe depression anxiety, Discharge may exacerbated symptoms, Severe functional impairment Progress Toward Problem(s) and Goals/Treatment Plan: * c/w current tx and plan * No new weekend lab results noted thus far * Vitals reviewed and noted below: 09/04/18 09/05/18 07:33 15:58 Temperature 97.6 F Pulse Rate 90 85 Respiratory 20 Rate Blood Pressure 127/88 138/89 Estimated Date of D/C: 09/08/18
[2018-09-06] MEDS: Multivitamin Therapeutic Tab PO SCH (09:32)
[2018-09-06] MEDS: MetroNIDAZOLE 0.75% Cream(45 gm) TOP SCH ×2 (09:40→17:07)
--- NOTE | 2018-09-06 15:41 | PN ---
DATE: 09/06/2018 SUBJECTIVE: I saw him in his room in his bed, he is taking a nap. He ate breakfast well. He is feeling better. MEDICATIONS: He is on Ativan, folic acid, Geodon, Klonopin, Maalox, MetroGel, milk of magnesia, Norvasc, Prozac, tabs, Thorazine, and vitamin B1. He is starting to improve, he tells me he is feeling better overall. PHYSICAL EXAMINATION VITAL SIGNS: He has 97.7 temperature, 85 pulse, 118/73 blood pressure, 18 respiratory rate. HEENT: Head is atraumatic and normocephalic. HEART: Regular rate. LUNGS: Decreased breath sounds, but clear. ABDOMEN: Soft, obese. EXTREMITIES: No edema. He is in pretty good shape overall, he is improving and I think he has depression and anxiety. We will continue as per Psychiatry. I encouraged him to participate in groups, take his medication, he is doing that and will continue as per Psychiatry encouragement to participate. Piyush Mcmahan DO MTDAvani
[2018-09-07 07:10] VITALS: RESP 20
[2018-09-07] MEDS: Multivitamin Therapeutic Tab PO SCH (09:17)
[2018-09-07] MEDS: MetroNIDAZOLE 0.75% Cream(45 gm) TOP SCH ×2 (09:18→17:02)
--- NOTE | 2018-09-07 09:24 | PCM.PYCHPN ---
Psychiatric Progress Note - Psychiatric Progress Note Patient seen today, length of contact: 30 minutes Problems Identified/Issues Discussed: I reviewed recent notes and met with patient at bedside. He is known to me from prior interviews last weekend during this admission. He continues to appear unkempt with inconsistent focus though responses are more goal directed, spontaneous and confident this weekend. Thought blocking remains and he still has trouble expressing himself with +slowed speech at times. Patient reports that he is tolerating his medications and denies any major side effects. He is still not sleeping well and reports "feeling more nervous" since benzo was decreased. He doesn't appear to be in any emotional distress, affect remains flat and he isn't responding to internal stimuli. There were no major behavioral issues over the weekend. He remains oddly related with a vague and scattered presentation. Diagnostic Results: As per history schizoaffected disorder Alcohol use disorder Rule out alcohol/benzodiazepines withdrawals Medication Change: No Medical Record Reviewed: Yes Mental Status Examination - Cognitive Function Orientation: Person, Place Memory: Impaired Attention: Poor (some improvement) Concentration: Poor (some improvement) Association: Loose Fund of Knowledge: Poor - Mood Mood: Depressed, Anxious - Affect Affect: Constricted, Flat - Formal Thought Process Formal Thought Process: Other (Circumstantial thought process, scattered, blocked) - Suicidal Ideation Suicidal Ideation: No - Homicidal Ideation Homicidal Ideation: No Goal/Treatment Plan - Goal/Treatment Plan Need for Continued Stay: Remain at risks for inpatient hospitalization, Severe depression anxiety, Discharge may exacerbated symptoms, Severe functional impairment Progress Toward Problem(s) and Goals/Treatment Plan: * c/w current tx and plan * Appreciate f/u by Dr. Mcmahan on 09/06/18~patient is improving * No new weekend lab results noted * Vitals reviewed and noted below: 09/06/18 09/06/18 09/06/18 07:00 09:29 15:59 Temperature 97.7 F Pulse Rate 85 91 H 96 H Respiratory 18 Rate Blood Pressure 118/73 112/69 124/82 Estimated Date of D/C: 09/08/18
--- NOTE | 2018-09-07 16:19 | PN ---
DATE: 09/07/2018 SUBJECTIVE: I saw him in the psychiatric floor. He is resting in bed. He is eating well, going to the bathroom well. He is walking well. He is taking his medicines well. He tells me he is actually feeling a little bit better psychologically and mentally since when he came in to the psychiatric floor. MEDICATIONS: He is on Ativan, folic acid, Geodon, Klonopin, Maalox, MetroGel, milk of magnesia, Norvasc, Prozac, Sonata, Thera-Tabs, Thorazine and vitamin B1. PHYSICAL EXAMINATION: VITAL SIGNS: He has 97.2 temp, 96 pulse, 112/53 blood pressure, 20 respiratory rate. HEENT: Head is atraumatic, normocephalic. HEART: Regular rate. LUNGS: Decreased breath sounds. ABDOMEN: Soft, obese. EXTREMITIES: No edema. ASSESSMENT AND PLAN: He is definitely improving. He has got schizoaffective disorder, severe depression, anxiety, hypertension. Continue with aggressive treatment and care. Encouraged him to participate and take his medications. Piyush Mcmahan DO
[2018-09-07] MEDS: Alum-Mag Hydrox-Simethicone Susp (30 mL) PO PRN (22:29)
[2018-09-08 07:15] VITALS: BP 104/61; TEMP 97.4
[2018-09-08] MEDS: Multivitamin Therapeutic Tab PO SCH (08:29)
[2018-09-08] MEDS: MetroNIDAZOLE 0.75% Cream(45 gm) TOP SCH (08:30)
[2018-09-08 08:32] VITALS: PULSE 72
--- NOTE | 2018-09-08 13:27 | PN ---
DATE: 09/08/2018 SUBJECTIVE: I saw him resting comfortably in the room at the psychiatric floor. He is comfortable. He is eating, sleeping. He is about the same, improved but he is in a stable situation. He is taking medications, was trying to participate. He is walking well, going to the bathroom well. He is eating well. MEDICATIONS: He is on Ativan, folic acid, Geodon, Klonopin, Maalox, Metrogel, milk of magnesia, Norvasc, Prozac, Sonata, Thera-Tabs, Thorazine, and vitamin B1. PHYSICAL EXAMINATION: VITAL SIGNS: He has 97.4 temperature, 72 pulse, 104/61 blood pressure, 20 respiratory rate. HEAD: Atraumatic, normocephalic. HEART: Regular rate. LUNGS: Decreased breath sounds, but clear. ABDOMEN: Soft, obese. EXTREMITIES: No edema. ASSESSMENT AND PLAN: As per Psychiatry, he had anxiety, depression, nervous on top of the schizoaffective disorder. As per Psychiatry, continue aggressive treatment and care. Piyush Mcmahan DO
[2018-09-08] MEDS: Alum-Mag Hydrox-Simethicone Susp (30 mL) PO PRN (14:09)
--- NOTE | 2018-09-08 14:48 | PCM.PYCHDC ---
Mental Status Examination - Mental Status Examination Orientation: Person, Place, Situation, Time Memory: Intact Mood: Neutral Affect: Constricted Attention: Poor (but with improvement) Concentration: Poor (with improvement, seems to be at baseline) Association: WNL Fund of Knowledge: WNL Formal Thought Process: No Impairment (thought process is mildly disorganized, but much improved) Description of patient's judgement and insight: improved insight into mental illness, limited insight into alcohol addiction. pt was compliant with unit rules and regulations, no agitation or aggression. Psychotic Thoughts and Behaviors: pt presented to be mildly disorganized, but much better to compare to the time of admission, patient denied hearing voices, denied seeing things. Patient deemed to be at his baseline of functioning. Suicidal Ideation: No Current Homicidal Ideation?: No Plan: Patient adamantly denied thoughts of harming self or others. Denies intent or plan to kill himself or others. Discharge Plan - Discharge Note Reason for Hospitalization: Patient was admitted for evaluation of depression and anxiety Psychiatric History (includes Medical, Family, Personal Hx): as per HPI Laboratory Data: 08/26/18 07:40 08/26/18 07:40 Lab Results 09/01/18 02:45: POC Glucose (mg/dL) 104 08/27/18 09:12: Prostate Specific Ag 0.5 08/26/18 07:40: Sodium 139, Potassium 3.6, Chloride 109 H, Carbon Dioxide 25, Anion Gap 9 L, BUN 9, Creatinine 0.6 L, Est GFR ( Amer) > 60, Est GFR (Non-Af Amer) > 60, Random Glucose 89, Calcium 8.6, Total Bilirubin 0.8, AST 43, ALT 25, Alkaline Phosphatase 91, Total Protein 6.8, Albumin 3.3, Globulin 3.6, Albumin/Globulin Ratio 0.9 L 08/26/18 07:40: WBC 6.2, RBC 4.25, Hgb 15.2, Hct 44.1, MCV 103.8, MCH 35.8 H, MCHC 34.5, RDW 13.3, Plt Count 121, MPV 10.7 08/25/18 07:30: TSH 3rd Generation 1.94 08/25/18 07:30: Fasting Glucose 87, Triglycerides 66, Cholesterol 206 H, LDL Cholesterol Direct 123, HDL Cholesterol 63 H 08/25/18 07:30: Carbamazepine 3 L Vital Signs Temp Pulse Resp BP Pulse Ox 09/08/18 08:23 72 104/61 09/08/18 07:12 97.4 F L 97 H 20 104/61 09/07/18 15:41 111 H 104/68 09/07/18 07:10 97.2 F L 96 H 20 112/53 L 09/06/18 15:59 96 H 124/82 09/06/18 09:29 91 H 112/69 09/06/18 07:00 97.7 F 85 18 118/73 09/05/18 15:58 85 138/89 09/05/18 08:54 89 118/75 09/04/18 16:04 89 123/80 09/04/18 08:26 90 127/88 09/04/18 07:33 97.6 F 90 20 127/88 09/03/18 15:00 98 H 19 105/73 09/03/18 08:56 84 135/94 H 09/03/18 07:15 97.5 F L 84 20 135/94 H 09/02/18 16:07 92 H 119/84 09/02/18 08:20 92 H 119/85 09/02/18 07:27 98.0 F 92 H 20 119/85 09/01/18 15:54 114 H 106/72 09/01/18 08:27 90 111/76 09/01/18 07:00 97.4 F L 90 20 111/76 08/31/18 16:02 93 H 119/82 08/31/18 08:15 105 H 101/70 08/31/18 07:00 97.4 F L 105 H 18 101/70 08/30/18 16:18 105 H 129/86 08/30/18 12:42 85 139/93 H 08/29/18 16:39 99 H 130/93 H 08/29/18 07:00 98.1 F 80 18 95/61 L 08/28/18 23:18 98 H 18 163/106 H 08/28/18 23:00 99 H 18 162/101 H 08/28/18 16:00 102 H 129/90 08/28/18 07:25 97.4 F L 73 20 115/79 08/27/18 16:00 97 H 112/74 08/26/18 16:00 84 103/58 L 08/26/18 06:36 97.5 F L 80 16 119/79 08/25/18 16:00 83 126/85 08/25/18 06:59 97.3 F L 116 H 20 107/73 08/25/18 02:17 18 08/24/18 20:09 98.1 F 63 17 141/99 H 97 Consultations:: List each consultation separately and include: 1. Reason for request. 2. Findings. 3. Follow-up Consultations: Patient was seen by Dr. Mcmahan, consult appreciated, please see notes for more detailed information Summary of Hospital Course include:: 1. Description of specific treatment plan utilized for patients during their course of treatmen. 2. Summarize the time- course for resolution of acute symptoms and/or regressed behaviors. 3. Describe issues identified and worked on during hospitalization. 4. Describe medication utilized. 5. Describe medical problems identified and treated. 6. Reassessment of suicide risk Summary of Hospital Course: Patient is 63 years old male with a self reported history of "OCD", depression anxiety, patient has multiple psychiatric admissions in the past, patient was transferred from [facility] for evaluation of "OCD and shakiness, I wanted medications to be reviewed", symptoms were getting worse for the past two months, transfer was uneventful. At the time of admission patient presented to be disheveled, fair ADLs, long and uncombed hair, intermittent eye contact, flat affect, patient presented to be disengaged, withdrawn. Patient reported that his main reason for admission was "shakiness and anxiety, moreover I wanted my medication to be adjusted", patient presented to be poor and unreliable historian. as per Medical record from [facility]: Patient presented into the emergency room for evaluation of anxiety, patient reported that he was feeling worse for the past few months. His primary psychiatrist prescribed medication but patient was noncompliant with them. Patient presented with symptoms of palpitation and mild/intermittent shortness of breath. Patient reported difficulty to fall asleep and to stay asleep, patient denied any suicidal or homicidal ideations, no psychotic symptoms identified. Patient reported that he was drinking 2-3 beers every day. pt reported he was dx with OCD and bipolar disorder. Patient denies history of suicidal attempts. as per Report from [facility]: UDS was positive for benzodiazepines 08/22/18 AST 42 ALT 32 Chest x-ray 08/22/18 Impression: There is no evidence of acute cardiac or pulmonary disease EKG 08/22/2018 NSR, normal EKG Collaterals from patient's primary psychiatrist was obtained at the emergency room 08/22/2018 Patient's brother from alcohol-related illnesses, patient's mother was very upset because of the fact that patient was drinking beer, patient was secretive and not sharing he will be evicted from [facility] home, most likely patient was mixed using/abusing benzodiazepines, drinking alcohol. Private psychiatrist Dr. Reno Murphy [phone], as per chart patient is not welcome back to the [facility] home. Please see admission notes for more detailed information. Patient was stabilized on the following medications: Doxepin was weaned off Prozac was started and increased to 40 mg daily for anxiety and depression Klonopin was decreased to 1 mg 3 times a day for anxiety Abilify was tried but no improvement, patient did not want to be on Seroquel, finally patient agreed to take Thorazine which was slowly increased to 100 mg 3 times a day for disorganized thoughts and behavior Patient does not want to be on naltrexone, patient has poor insight into his alcohol abuse Patient also was on Sonata 10 mg at the nighttime for insomnia Patient tolerated medications well, no side effects observed or reported, aims 0, no EPS. Patient improved currently, at the same time patient was giving hard time with the director social service in regards of discharge plan. Patient was seen by Mr. Sheikh from [facility], patient was accepted to the [facility], but patient refused to go there because "it is very far". Patient is constantly changing his discharge plan, at the same time patient's mother was willing to accept patient in her house order for the patient to find permanent housing. pt agreed. Overall patient improved significantly, depression is under control, patient had fair appetite and sleep, patient was attending group therapy, no agitation, no aggression. Patient reached maximum effect from this acute psychiatric admission. Deemed ready for discharge. At the time of the discharge patient was considered to pose no imminent danger to self or others, will be following up with his private psychiatrist, f/u appt on September 17, information about follow up appointment, time and address provided to the pt, (see SW note for more detailed information). It is a patient res ponsibility to follow up with outpatient clinic, PMD as well as specialists In case patient will need to obtain results of studies pending at discharge, patient was provided with contact information of Psychiatric Inpatient unit [phone] as well as Medical Record Department [phone], as well as [facility] team [phone]. Nicotine patch was offered, but pt refused counseling about smoking and alcohol cessation provided AA meetings as well as smoking cessation treatment program information was provided by the naltrexone offered, but pt said that he does not have addiction to alcohol and refused it pt was provided with prescriptions see medication reconciliation form Pt was educated about safety plan in case of worsening of symptoms or in case of suicidal or homicidal ideation call 911 or go to the nearest ER, also was educated to take meds as prescribed and stay away from drugs, pt verbalized understanding. Lab Results 08/25/18 07:30: TSH 3rd Generation 1.94 08/25/18 07:30: Fasting Glucose 87, Triglycerides 66, Cholesterol 206 H, LDL Cholesterol Direct 123, HDL Cholesterol 63 H 08/25/18 07:30: Carbamazepine 3 L Vital Signs Temp Pulse Resp BP Pulse Ox 08/25/18 16:00 83 126/85 08/25/18 06:59 97.3 F L 116 H 20 107/73 08/25/18 02:17 18 08/24/18 20:09 98.1 F 63 17 141/99 H 97 - Diagnosis (1) Schizoaffective disorder Current Visit: Yes Status: Chronic Priority: High (2) Alcohol use disorder Current Visit: Yes Status: Chronic Priority: Medium (3) OCD (obsessive compulsive disorder) Current Visit: Yes Status: Chronic Priority: Medium - Final Diagnosis (DSM 5) Condition upon Discharge: GOOD Disposition: HOME/ ROUTINE Follow-up Treatment Plan: Patient will be followed up with his private psychiatrist, follow-up appointment will be on September 17. Prescriptions/Medication Reconciliation: amLODIPine [Norvasc] 5 mg PO DAILY #7 tab chlorproMAZINE [chlorpromazine HCl] 100 mg PO TID #45 tab clonazePAM [Klonopin] 1 mg PO TID #45 tab Fluoxetine HCl [Prozac] 40 mg PO DAILY #14 cap Folic Acid 1 mg PO DAILY #14 tab metroNIDAZOLE 0.75% [Metrogel Cream] 1 g TOP BID #1 tube Multivitamin Therapeutic Tab [Thera Tab] 1 tab PO 0800 #14 tab Thiamine [Vitamin B1 Tab] 100 mg PO DAILY #14 tab Zaleplon [Sonata] 10 mg PO HS #14 capsule - Tobacco Cessation Tobacco Use Status for the last 30 days: Light User(<=4 cigs daily, cigar/pipes not daily,or smokeless tobacco) Tobacco Use Treatment Practical Counseling Provided: Yes Reason for not providing: Patient refused tobacco cessation medication Smoking Cessation Prescription was given: No If no, reason for not providing: Patient refused - Alcohol or Substance Abuse Does the patient have an Alcohol or Substance Abuse Disorder: Yes A prescription for an FDA-approved medication for alcohol and drug dependence was given to the patient at discharge: No If no,reason for not providing: Patient refused - Antipsychotic Medications Pt discharged on 2 or more routine antipsychotic medications: No
== END 2018-09-08 15:49 | disposition home or self-care (01) | DRG 885 ==
LOC: ED 20:08 → ERH 20:51 → PSYC 21:44
PROVIDERS: ADMIT Psychiatry & Neurology Psychiatry; ATTEND Psychiatry & Neurology Psychiatry
PROC: GZ3ZZZZ Medication Management (ICD-10-PCS; principal; 2018-08-25)
DX: F25.9 Schizoaffective disorder, unspecified (principal); F10.239 Alcohol dependence with withdrawal, unspecified; F42.9 Obsessive-compulsive disorder, unspecified; F17.210 Nicotine dependence, cigarettes, uncomplicated; F41.9 Anxiety disorder, unspecified; I10 Essential (primary) hypertension; L30.9 Dermatitis, unspecified; Z91.14 Patient's other noncompliance with medication regimen; Z81.8 Family history of other mental and behavioral disorders